=== PATIENT | male | born 1965 | race Caucasian/White ===

== ENCOUNTER 2020-08-18 10:07 | Observation (INO) | payer SELFPAY ==
[~2020-08-18] VITALS: Ht 175.3 cm; Wt 93.3 kg
[~2020-08-18 10:07] MED LIST: AMLO-187 PO; CITA20TA9 PO; CYCL10TA2 PO; ESCITALOPRAM OX10 MG PO; GABA600T PO; HYDR-2761 PO; LISI1TAB37 PO; OLME40TA12 PO; OMEP20CA5 PO; OXYC5TAB4 PO
[2020-08-18 11:27] LABS: BASO % 1 % (0-3); EOS # 0.1 x10^3/uL (0.0-0.7); EOS % 1 % (0-3); HEMATOCRIT 47.1 % (39.0-53.0); LYMPH # 0.9 x10^3/uL (1.0-4.8); LYMPH % 13 % (24-48); MEAN CORPUSCULAR HEMOGLOBIN 30 pg (25-35); MEAN CORPUSCULAR HGB CONC 34 g/dL (31-37); MEAN CORPUSCULAR VOLUME 88 fL (79-100); MONO # 0.6 x10^3/uL (0.0-1.1); MONO % 8 % (0-9); NEUT # 5.5 x10^3/uL (1.8-7.7); NEUT % 78 % (31-73); PLATELET COUNT 250 x10^3/uL (140-400); RED BLOOD COUNT 5.36 x10^6/uL (4.30-5.70); RED CELL DISTRIBUTION WIDTH 13.2 % (11.5-14.5)
[2020-08-18 11:40] LABS: CALCIUM 9.3 mg/dL (8.5-10.1); CREATININE 0.9 mg/dL (0.7-1.3); GFR 88.6; POTASSIUM 3.8 mmol/L (3.5-5.1)
[2020-08-18] MEDS ORDERED: MORPHINE SULFATE 10 MG/ML VIAL. IV ONE (11:45)
[2020-08-18 11:46] LABS: ALBUMIN 3.8 g/dL (3.4-5.0); TOTAL BILIRUBIN 1.2 mg/dL (0.2-1.0); TOTAL PROTEIN 7.6 g/dL (6.4-8.2)
--- NOTE | 2020-08-18 12:19 | RAD ---
EXAM: CT CHEST WITHOUT CONTRAST HISTORY: Back pain, pleuritic in nature, neuro symptoms. COMPARISON: None TECHNIQUE: Helical CT of the chest performed without contrast. Coronal and sagittal reformats were obtained. One or more of the following individualized dose reduction techniques were utilized for this examination: 1. Automated exposure control 2. Adjustment of the mA and/or kV according to patient size 3. Use of iterative reconstruction technique. FINDINGS: Thyroid gland and thoracic inlet: Visualized portion of the thyroid gland is normal. Heart and great vessels: The heart is normal in size. No pericardial effusion. Thoracic aorta is normal in caliber. There is no intramural hematoma. Minimal calcified atherosclerosis. Mediastinum and clay: No lymphadenopathy. There are few calcified hilar lymph nodes. Lungs and pleura: There are several calcified granulomas in the left upper lobe. No suspicious pulmonary nodule. The lungs are clear. No pleural effusion. Airways are normal. Chest wall and axillae: Normal. No axillary lymphadenopathy. Upper abdomen: The upper abdomen is normal. Bones: No acute osseous abnormality. IMPRESSION: No acute abnormality. Electronically signed by: Sugar Carter MD (08/18/2020 12:16 PM) [id number]
--- NOTE | 2020-08-18 18:14 | ED.ADGEN ---
Past Medical History Past Medical History: Anxiety, Hypertension Additional Past Medical Histor: back pain Past Surgical History: Other Additional Past Surgical Histo: neck fusion,stephon carpal tunnel, uvula removed, inguinal hernia,nose sx Smoking Status: Former Smoker Alcohol Use: Occasionally Drug Use: None General Adult EDM: Chief Complaint: BACK PAIN OR INJURY HPI: HPI: Patient is a 54 year old [f__sex] who presents with [] Review of Systems: Review of Systems: Constitutional: Denies fever or chills. [] Eyes: Denies change in visual acuity. [] HENT: Denies nasal congestion or sore throat. [] Respiratory: Denies cough or shortness of breath. [] Cardiovascular: Denies chest pain or edema. [] GI: Denies abdominal pain, nausea, vomiting, bloody stools or diarrhea. [] : Denies dysuria. [] Musculoskeletal: Denies back pain or joint pain. [] Integument: Denies rash. [] Neurologic: Denies headache, focal weakness or sensory changes. [] Endocrine: Denies polyuria or polydipsia. [] Lymphatic: Denies swollen glands. [] Psychiatric: Denies depression or anxiety. [] Current Medications: Current Medications Medications (Trade) Dose Ordered Sig/Anders Start Time Stop Time Status Last Admin Dose Admin Morphine Sulfate (Morphine Sulfate) 5 mg 1X ONCE 08/18/20 11:45 08/18/20 11:46 DC 08/18/20 12:08 5 MG Allergies: Allergies: Allergies Coded Allergies Type Severity Reaction Last Updated Verified Iodinated Contrast Media - IV Dye Allergy Severe 05/10/14 Yes Physical Exam: PE: Constitutional: Well developed, well nourished, no acute distress, non-toxic appearance. [] HENT: Normocephalic, atraumatic, bilateral external ears normal, oropharynx moist, no oral exudates, nose normal. [] Eyes: PERRLA, EOMI, conjunctiva normal, no discharge. [] Neck: Normal range of motion, no tenderness, supple, no stridor. [] Cardiovascular:Heart rate regular rhythm, no murmur [] Lungs & Thorax: Bilateral breath sounds clear to auscultation [] Abdomen: Bowel sounds normal, soft, no tenderness, no masses, no pulsatile masses. [] Skin: Warm, dry, no erythema, no rash. [] Back: No tenderness, no CVA tenderness. [] Extremities: No tenderness, no cyanosis, no clubbing, ROM intact, no edema. [] Neurologic: Alert and oriented X 3, normal motor function, normal sensory function, no focal deficits noted. [] Psychologic: Affect normal, judgement normal, mood normal. [] Current Patient Data: Labs: Laboratory Tests Test 08/18/20 11:14 White Blood Count 7.0 x10^3/uL (4.0-11.0) Red Blood Count 5.36 x10^6/uL (4.30-5.70) Hemoglobin 16.0 g/dL (13.0-17.5) Hematocrit 47.1 % (39.0-53.0) Mean Corpuscular Volume 88 fL (79-100) Mean Corpuscular Hemoglobin 30 pg (25-35) Mean Corpuscular Hemoglobin Concent 34 g/dL (31-37) Red Cell Distribution Width 13.2 % (11.5-14.5) Platelet Count 250 x10^3/uL (140-400) Neutrophils (%) (Auto) 78 % (31-73) H Lymphocytes (%) (Auto) 13 % (24-48) L Monocytes (%) (Auto) 8 % (0-9) Eosinophils (%) (Auto) 1 % (0-3) Basophils (%) (Auto) 1 % (0-3) Neutrophils # (Auto) 5.5 x10^3/uL (1.8-7.7) Lymphocytes # (Auto) 0.9 x10^3/uL (1.0-4.8) L Monocytes # (Auto) 0.6 x10^3/uL (0.0-1.1) Eosinophils # (Auto) 0.1 x10^3/uL (0.0-0.7) Basophils # (Auto) 0.0 x10^3/uL (0.0-0.2) D-Dimer (Janelle) < 0.27 ug/mlFEU Sodium Level 139 mmol/L (136-145) Potassium Level 3.8 mmol/L (3.5-5.1) Chloride Level 100 mmol/L (98-107) Carbon Dioxide Level 30 mmol/L (21-32) Anion Gap 9 (6-14) Blood Urea Nitrogen 17 mg/dL (8-26) Creatinine 0.9 mg/dL (0.7-1.3) Estimated GFR (Cockcroft-Gault) 88.6 BUN/Creatinine Ratio 19 (6-20) Glucose Level 99 mg/dL (70-99) Calcium Level 9.3 mg/dL (8.5-10.1) Total Bilirubin 1.2 mg/dL (0.2-1.0) H Aspartate Amino Transferase (AST) 18 U/L (15-37) Alanine Aminotransferase (ALT) 24 U/L (16-63) Alkaline Phosphatase 57 U/L (46-116) Troponin I Quantitative < 0.017 ng/mL (0.000-0.055) [id number]-Type Natriuretic Peptide 27 pg/mL (0-124) Total Protein 7.6 g/dL (6.4-8.2) Albumin 3.8 g/dL (3.4-5.0) Albumin/Globulin Ratio 1.0 (1.0-1.7) Laboratory Tests 08/18/20 11:14 Laboratory Tests 08/18/20 11:14 Vital Signs: Vital Signs Date Time Temp Pulse Resp B/P (MAP) Pulse Ox O2 Delivery O2 Flow Rate FiO2 08/18/20 14:55 92 132/80 (97) 99 Room Air 08/18/20 12:08 18 08/18/20 10:07 99.1 99.1 EKG: EKG: [] Heart Score: Risk Factors: Risk Factors: DM, Current or recent (<one month) smoker, HTN, HLP, family history of CAD, obesity. Risk Scores: Score 0 - 3: 2.5% MACE over next 6 weeks - Discharge Home Score 4 - 6: 20.3% MACE over next 6 weeks - Admit for Clinical Observation Score 7 - 10: 72.7% MACE over next 6 weeks - Early Invasive Strategies Radiology/Procedures: Radiology/Procedures: [] Course & Med Decision Making: Course & Med Decision Making Pertinent Labs and Imaging studies reviewed. (See chart for details) [] Kwadwo Disclaimer: Kwadwo Disclaimer: This electronic medical record was generated, in whole or in part, using a voice recognition dictation system. Departure Departure Impression: Primary Impression: Back pain Additional Impressions: Falls Weakness Disposition: 09 ADMITTED INPT THIS HOSP Condition: IMPROVED Referrals: NO PCP (PCP) Problem Qualifiers RICKY DERAS MD Aug 18, 2020 18:14
[2020-08-18] MEDS ORDERED: DOCUSATE SODIUM 100 MG CAPSULE. PO PRN (18:45)
[2020-08-18] MEDS ORDERED: POTASSIUM CHLORIDE 10MEQ 100 ML IV PRN (18:45)
[2020-08-18] MEDS ORDERED: POTASSIUM CHLORIDE 20 MEQ TABLET.ER. PO PRN (18:45)
[2020-08-18] MEDS ORDERED: ONDANSETRON PF 4 MG/2 ML VIAL. IVP PRN (18:45)
[2020-08-18] MEDS ORDERED: MAGNESIUM SULFATE 2GM 50 ML IV SCH (18:45)
[2020-08-18] MEDS ORDERED: ACETAMINOPHEN 325 MG TABLET. PO PRN ×2 (18:45)
[2020-08-18] MEDS ORDERED: POTASSIUM CHLORIDE 10MEQ 100 ML IV SCH (18:45)
[2020-08-18] MEDS ORDERED: DEXTROSE 50% 25 GM / 50ML DISP.SYRIN. IV PRN (18:45)
[2020-08-18] MEDS ORDERED: SENNOSIDES 8.6 MG TABLET PO PRN (18:45)
[2020-08-18 19:00] VITALS: BP 131/77
[2020-08-18] MEDS: CYCLOBENZAPRINE 10 MG TABLET. PO PRN (19:11)
[2020-08-18] MEDS: fentaNYL PF VIAL 100 MCG/2 ML VIAL IVP PRN (19:11)
[2020-08-18] MEDS ORDERED: ELECTROLYTE (NON-ICU) PROTOCOL. MC PRN (19:15)
--- NOTE | 2020-08-18 19:20 | PDOC1 ---
History and Physical Date of Service: DOS: DATE: 08/18/20 TIME: 18:46 Chief Complaint: Chief Complain: Back pain History of Present Illness: HPI: Patient is 54-year-old male with past medical history of hypertension and anxiety and worsening back pain for the last couple months. 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 Unfortunately, in the past few days his back pain is gotten so bad that he felt like it was stabbing him. Patient states when he was attempting to stand he can only stand for a few minutes and then he would need to hold onto something because he felt that his thoracic back was caving in on him. Patient denies any red flag symptoms such as bladder or bowel incontinence or lower extremity weakness numbness or tingling. He is unable to elevate his extremities over his head because of pain. When externally rotating his legs he complained of pain mainly in his lower back and in the hip area. Patient states that he did see a doctor in the clinic and said that he might have ankylosing spondylitis. Denies rashes, blurry vision, constipation, diarrhea, or syncope or falls. Patient does note that his mother has a history of rheumatoid arthritis Past Medical/Surgical History: PMH/PSH: Past Medical History: Anxiety, Hypertension, back pain Past Surgical History: cervical neck fusion,stephon carpal tunnel, uvula removed, inguinal hernia,nose sx Allergies: Allergies: Coded Allergies: Iodinated Contrast Media - IV Dye (Verified Allergy, Severe, 05/10/14) Family History: Family History: Mom with a history of rheumatoid arthritis Social History: Social History: Smoking Status: Former Smoker Alcohol Use: Occasionally Drug Use: None Current Medications: Current Medications Current Medications Morphine Sulfate (Morphine Sulfate) 5 mg 1X ONCE IV Last administered on 08/18/20at 12:08; Start 08/18/20 at 11:45; Stop 08/18/20 at 11:46; Status DC Active Scripts Active Reported Hydrocodone-Apap 5-325 (Hydrocodone Bit/Acetaminophen) 1 Each Tablet 1 Tab PO DAILY PRN Cyclobenzaprine Hcl 10 Mg Tablet 10 Mg PO DAILY Escitalopram Oxalate 10 Mg Tablet 10 Mg PO DAILY Amlodipine Besylate 10 Mg Tablet 10 Mg PO DAILY Benicar (Olmesartan Medoxomil) 40 Mg Tablet 40 Mg PO DAILY ROS: Review of Systems Review of System REVIEW OF SYSTEMS: GENERAL: Denies weakness SKIN: No bruising, hair changes or rashes. EYES: No blurred, double or loss of vision. NOSE AND THROAT: No history of nosebleeds, hoarseness or sore throat. HEART: No history of palpitations, chest pain or shortness of breath on exertion. LUNGS: Denies cough, hemoptysis, wheezing or shortness of breath. GASTROINTESTINAL: Denies changes in appetite, nausea, vomiting, diarrhea or constipation. GENITOURINARY: No history of frequency, urgency, hesitancy or nocturia. NEUROLOGIC: Denies history of numbness, tingling, or tremor. PSYCHIATRIC: No history of panic, anxiety or depression. ENDOCRINE: No history of heat or cold intolerance, polyuria or polydipsia. EXTREMITIES: Denies joint pain, pain on walking or stiffness. Physical Exam: Vital Signs: Vital Signs Date Time Temp Pulse Resp B/P (MAP) Pulse Ox O2 Delivery O2 Flow Rate FiO2 08/18/20 17:25 81 135/78 (97) 97 Room Air 08/18/20 12:08 18 08/18/20 10:07 99.1 99.1 Physcial Exam: GEN: No apparent distress. Alert and oriented HEENT: Normal cephalic, atraumatic, external auditory canals are patent EYES: Extraocular muscles are intact, pupil are equally round and reactive to light and accommodation MUSCULOSKELETAL: Well developed , well nourished, limited range of motion due to pain. 5 out of 5 strength in all extremities. Tenderness along the para spinal border in the thoracic region around T5 ENDOCRINE: No thyromegaly was palpated LYMPHATICS: No cervical chain or axillary nodes were noted HEMATOPOIETIC: No bruising NECK: Supple, no JVD, no thyromegaly was noted LUNGS: Clear to auscultation in all lung west without rhonchi or wheezing HEART: RRR, S!, S2 present. Peripheral pulses intact, no obvious murmurs noted ABDOMEN: Soft, nontender. Positive bowel sounds, no organomegaly, normal bowel sounds EXTREMITIES: Without clubbing, cyanosis, or edema. Pedal pulses intact. Negative Homans sign NEUROLOGIC: Normal speech and tone. A&O x 3, moves all extremities, no obvious focal deficits PSYCHIATRIC: Normal affect, normal mood. Stable SKIN: No ulcerations or rashes, good skin turgor, no jaundice VASCULAR: Good capillary refill, neurovascular bundle appears to be intact Labs: Labs: Laboratory Tests Test 08/18/20 11:14 White Blood Count 7.0 x10^3/uL (4.0-11.0) Red Blood Count 5.36 x10^6/uL (4.30-5.70) Hemoglobin 16.0 g/dL (13.0-17.5) Hematocrit 47.1 % (39.0-53.0) Mean Corpuscular Volume 88 fL (79-100) Mean Corpuscular Hemoglobin 30 pg (25-35) Mean Corpuscular Hemoglobin Concent 34 g/dL (31-37) Red Cell Distribution Width 13.2 % (11.5-14.5) Platelet Count 250 x10^3/uL (140-400) Neutrophils (%) (Auto) 78 % (31-73) Lymphocytes (%) (Auto) 13 % (24-48) Monocytes (%) (Auto) 8 % (0-9) Eosinophils (%) (Auto) 1 % (0-3) Basophils (%) (Auto) 1 % (0-3) Neutrophils # (Auto) 5.5 x10^3/uL (1.8-7.7) Lymphocytes # (Auto) 0.9 x10^3/uL (1.0-4.8) Monocytes # (Auto) 0.6 x10^3/uL (0.0-1.1) Eosinophils # (Auto) 0.1 x10^3/uL (0.0-0.7) Basophils # (Auto) 0.0 x10^3/uL (0.0-0.2) D-Dimer (Janelle) < 0.27 ug/mlFEU Sodium Level 139 mmol/L (136-145) Potassium Level 3.8 mmol/L (3.5-5.1) Chloride Level 100 mmol/L (98-107) Carbon Dioxide Level 30 mmol/L (21-32) Anion Gap 9 (6-14) Blood Urea Nitrogen 17 mg/dL (8-26) Creatinine 0.9 mg/dL (0.7-1.3) Estimated GFR (Cockcroft-Gault) 88.6 BUN/Creatinine Ratio 19 (6-20) Glucose Level 99 mg/dL (70-99) Calcium Level 9.3 mg/dL (8.5-10.1) Total Bilirubin 1.2 mg/dL (0.2-1.0) Aspartate Amino Transf (AST/SGOT) 18 U/L (15-37) Alanine Aminotransferase (ALT/SGPT) 24 U/L (16-63) Alkaline Phosphatase 57 U/L (46-116) Troponin I Quantitative < 0.017 ng/mL (0.000-0.055) MV-[id number]-Type Natriuretic Peptide 27 pg/mL (0-124) Total Protein 7.6 g/dL (6.4-8.2) Albumin 3.8 g/dL (3.4-5.0) Albumin/Globulin Ratio 1.0 (1.0-1.7) Laboratory Tests Test 08/18/20 11:14 White Blood Count 7.0 x10^3/uL (4.0-11.0) Red Blood Count 5.36 x10^6/uL (4.30-5.70) Hemoglobin 16.0 g/dL (13.0-17.5) Hematocrit 47.1 % (39.0-53.0) Mean Corpuscular Volume 88 fL (79-100) Mean Corpuscular Hemoglobin 30 pg (25-35) Mean Corpuscular Hemoglobin Concent 34 g/dL (31-37) Red Cell Distribution Width 13.2 % (11.5-14.5) Platelet Count 250 x10^3/uL (140-400) Neutrophils (%) (Auto) 78 % (31-73) Lymphocytes (%) (Auto) 13 % (24-48) Monocytes (%) (Auto) 8 % (0-9) Eosinophils (%) (Auto) 1 % (0-3) Basophils (%) (Auto) 1 % (0-3) Neutrophils # (Auto) 5.5 x10^3/uL (1.8-7.7) Lymphocytes # (Auto) 0.9 x10^3/uL (1.0-4.8) Monocytes # (Auto) 0.6 x10^3/uL (0.0-1.1) Eosinophils # (Auto) 0.1 x10^3/uL (0.0-0.7) Basophils # (Auto) 0.0 x10^3/uL (0.0-0.2) D-Dimer (Janelle) < 0.27 ug/mlFEU Sodium Level 139 mmol/L (136-145) Potassium Level 3.8 mmol/L (3.5-5.1) Chloride Level 100 mmol/L (98-107) Carbon Dioxide Level 30 mmol/L (21-32) Anion Gap 9 (6-14) Blood Urea Nitrogen 17 mg/dL (8-26) Creatinine 0.9 mg/dL (0.7-1.3) Estimated GFR (Cockcroft-Gault) 88.6 BUN/Creatinine Ratio 19 (6-20) Glucose Level 99 mg/dL (70-99) Calcium Level 9.3 mg/dL (8.5-10.1) Total Bilirubin 1.2 mg/dL (0.2-1.0) Aspartate Amino Transf (AST/SGOT) 18 U/L (15-37) Alanine Aminotransferase (ALT/SGPT) 24 U/L (16-63) Alkaline Phosphatase 57 U/L (46-116) Troponin I Quantitative < 0.017 ng/mL (0.000-0.055) [id number]-Type Natriuretic Peptide 27 pg/mL (0-124) Total Protein 7.6 g/dL (6.4-8.2) Albumin 3.8 g/dL (3.4-5.0) Albumin/Globulin Ratio 1.0 (1.0-1.7) Images: Images CT CHEST FINDINGS: Thyroid gland and thoracic inlet: Visualized portion of the thyroid gland is normal. Heart and great vessels: The heart is normal in size. No pericardial effusion. Thoracic aorta is normal in caliber. There is no intramural hematoma. Minimal calcified atherosclerosis. Mediastinum and clay: No lymphadenopathy. There are few calcified hilar lymph nodes. Lungs and pleura: There are several calcified granulomas in the left upper lobe. No suspicious pulmonary nodule. The lungs are clear. No pleural effusion. Airways are normal. Chest wall and axillae: Normal. No axillary lymphadenopathy. Upper abdomen: The upper abdomen is normal. Bones: No acute osseous abnormality. IMPRESSION: No acute abnormality. Assessment/Plan Assessment/Plan Intractable back pain Hypertension Anxiety History of cervical fusion Admit to medicine for further management IV and p.o. pain control Rehab consult with Dr. Barrios for possible joint steroid injections Consider neurology consult if there worsening weakness of his upper or lower extremities Pending ESR for suspicion for ankylosing spondylitis AP pelvic x-ray PT OT Lovenox for DVT prophylaxis Regular diet Full code Discussed with RN and SW Disposition inpatient care as above Surrogate decision maker is Kayla Farrell Justifications for Admission Other Justification TATYANA CASTRO MD Aug 18, 2020 19:20
[2020-08-18] MEDS ORDERED: MAGNESIUM OXIDE 400 MG TABLET PO SCH (21:00)
[2020-08-18] MEDS: ENOXAPARIN 40 MG/0.4 ML SYRINGE. SQ SCH (22:24)
[2020-08-18 23:00] VITALS: BP 115/74
--- NOTE | 2020-08-18 23:00 | NUR ---
ADMIT NOTE The patient, MARQUEZ AVENDANO, 54 y/o, M admitted by TATYANA CASTRO MD, was given written information regarding hospital policies, unit procedures and contact persons. Patient orientated to room, admit packet reviewed and plan of care discussed. Patient's allergies verified and patient reports taking no regular home medications. Patient remains in bed, call light within reach and bed in lowest/locked position; no other needs voiced at this time.
--- NOTE | 2020-08-19 00:04 | RAD ---
Pelvis one view. HISTORY: Evaluate for ankylosing spondylitis Single view was taken of the pelvis. Hips appear unremarkable. SI joints appear normal without fusion or sclerosis. There is degenerative disc disease and facet arthritis in the lower lumbar spine. IMPRESSION: 1. Negative pelvis. Electronically signed by: Moises Grijalva MD (08/19/2020 12:02 AM) [id number]
[2020-08-19 03:00] VITALS: BP 114/74
[2020-08-19 05:17] LABS: BASO # 0.1 x10^3/uL (0.0-0.2); BASO % 1 % (0-3); EOS # 0.2 x10^3/uL (0.0-0.7); EOS % 3 % (0-3); HEMATOCRIT 48.2 % (39.0-53.0); HEMOGLOBIN 15.9 g/dL (13.0-17.5); LYMPH # 1.7 x10^3/uL (1.0-4.8); LYMPH % 21 % (24-48); MEAN CORPUSCULAR HEMOGLOBIN 29 pg (25-35); MEAN CORPUSCULAR HGB CONC 33 g/dL (31-37); MEAN CORPUSCULAR VOLUME 89 fL (79-100); MONO # 0.8 x10^3/uL (0.0-1.1); MONO % 10 % (0-9); NEUT # 5.3 x10^3/uL (1.8-7.7); NEUT % 66 % (31-73); PLATELET COUNT 252 x10^3/uL (140-400); RED CELL DISTRIBUTION WIDTH 13.7 % (11.5-14.5); WHITE BLOOD COUNT 8.1 x10^3/uL (4.0-11.0)
[2020-08-19 05:27] LABS: CALCIUM 8.7 mg/dL (8.5-10.1); CREATININE 0.8 mg/dL (0.7-1.3); GFR 101.5; MAGNESIUM 2.1 mg/dL (1.8-2.4); PHOSPHORUS 3.8 mg/dL (2.6-4.7); POTASSIUM 3.7 mmol/L (3.5-5.1)
[2020-08-19] MEDS: CYCLOBENZAPRINE 10 MG TABLET. PO PRN ×2 (05:58→18:02)
[2020-08-19] MEDS: fentaNYL PF VIAL 100 MCG/2 ML VIAL IVP PRN (05:59)
[2020-08-19 07:00] VITALS: BP 134/82
--- NOTE | 2020-08-19 08:41 | PDOC ---
PROGRESS NOTES Date of Service: DATE: 08/19/20 TIME: 08:41 Chief Complaint Chief Complaint Assessment/Plan Assessment/Plan Intractable back pain Hypertension Anxiety History of cervical fusion GAIT INSTABILITY WITH FALLS, FREQUENT moderate sized posterior disc protrusion centered to the left of midline at C6- 7, extending into the inferior aspect of the left neural foramen with associated effacement of the left nerve root sleeve IN 2016 Previous anterior spinal fusion and instrumentation from C3 through C5.Moderate posterior disc protrusion on the left at C6-7 with considerable left foraminal encroachment and mild central spinal stenosis, MYELOGRAM PLAN Admit to medicine for further management IV and p.o. pain control Rehab consult with Dr. WORRELL for possible joint steroid injections Consider neurology consult if there worsening weakness of his upper or lower ex tremities ESR for suspicion for ankylosing spondylitis AP pelvic x-ray PT OT Lovenox for DVT prophylaxis Regular diet Full code Discussed with RN and SW Disposition inpatient care as above Surrogate decision maker is Kayla Farrell psa ESR X RAY L/S CONSULT NEUROSURGERY x ray c/s 37 MIN pt exam, chart review, > 50% of time spent with exam, chart review, pt care coordination Justifications for Admission Justifications for Admission Other Justification History of Present Illness History of Present Illness Chief Complaint: Chief Complain: Back pain History of Present Illness: HPI: Patient is 54-year-old male with past medical history of hypertension and anxiety and worsening back pain for the last couple months. 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 Unfortunately, in the past few days his back pain is gotten so bad that he felt like it was stabbing him. Patient states when he was attempting to stand he can only stand for a few minutes and then he would need to hold onto something because he felt that his thoracic back was caving in on him. Patient denies any red flag symptoms such as bladder or bowel incontinence or lower extremity weakness numbness or tingling. He is unable to elevate his extremities over his head because of pain. When externally rotating his legs he complained of pain mainly in his lower back and in the hip area. Patient states that he did see a doctor in the clinic and said that he might have ankylosing spondylitis. Denies rashes, blurry vision, constipation, diarrhea, or syncope or falls. Patient does note that his mother has a history of rheumatoid arthritis Past Medical/Surgical History: PMH/PSH: Past Medical History: Anxiety, Hypertension, back pain Past Surgical History: cervical neck fusion,stephon carpal tunnel, uvula removed, inguinal hernia,nose sx Allergies: Allergies: Coded Allergies: Iodinated Contrast Media - IV Dye (Verified Allergy, Severe, 05/10/14) Family History: Family History: Mom with a history of rheumatoid arthritis Social History: Social History: Smoking Status: Former Smoker Alcohol Use: Occasionally Drug Use: None Vitals Vitals Vital Signs Date Time Temp Pulse Resp B/P (MAP) Pulse Ox O2 Delivery O2 Flow Rate FiO2 08/19/20 06:30 16 Room Air 08/19/20 03:00 97.8 78 114/74 (87) 96 97.8 Physical Exam Physical Exam Physcial Exam: GEN: No apparent distress. Alert and oriented HEENT: Normal cephalic, atraumatic, external auditory canals are patent EYES: Extraocular muscles are intact, pupil are equally round and reactive to light and accommodation MUSCULOSKELETAL: Well developed , well nourished, limited range of motion due to pain. 5 out of 5 strength in all extremities. Tenderness along the parasp inal border in the thoracic region around T5 ENDOCRINE: No thyromegaly was palpated LYMPHATICS: No cervical chain or axillary nodes were noted HEMATOPOIETIC: No bruising NECK: Supple, no JVD, no thyromegaly was noted LUNGS: Clear to auscultation in all lung west without rhonchi or wheezing HEART: RRR, S!, S2 present. Peripheral pulses intact, no obvious murmurs noted ABDOMEN: Soft, nontender. Positive bowel sounds, no organomegaly, normal bowel sounds EXTREMITIES: Without clubbing, cyanosis, or edema. Pedal pulses intact. Negative Homans sign NEUROLOGIC: Normal speech and tone. A&O x 3, moves all extremities, no obvious focal deficits PSYCHIATRIC: Normal affect, normal mood. Stable SKIN: No ulcerations or rashes, good skin turgor, no jaundice VASCULAR: Good capillary refill, neurovascular bundle appears to be intact General: Alert, Oriented X3, Cooperative, No acute distress, mild distress Heart: Regular rate Lungs: Clear Abdomen: Normal bowel sounds, Soft, No tenderness Extremities: No clubbing, No cyanosis, No tenderness/swelling Labs LABS PROCEDURE: MRI brain with contrast. HISTORY: Headaches, dizziness, generalized weakness. Syncope. TECHNIQUE: Sagittal T1, axial T1, axial T2, axial FLAIR, diffusion imaging with ADC map, axial T2 gradient, sagittal FLAIR, post-contrast axial, and post-contrast coronal sequences are provided. The patient received 8 milliliters of intravenous Gadavist without complication. No comparison is available. FINDINGS: The ventricles are normal in size and configuration. There is no intracranial hemorrhage or extra-axial fluid collection. There is no mass effect or midline shift. There is no area of restricted diffusion to suggest an acute infarct. The intracranial flow voids are preserved. The sagittal midline structures are unremarkable. The pituitary and suprasellar region are unremarkable. There is no area of unexpected enhancement on post-contrast imaging. There is a retention cyst in the right maxillary sinus. There is fluid in the optic sheaths. IMPRESSION: No acute intracranial findings. Electronically signed by: Dustin Swenson MD (Apr 15, 2014 11:48:11) DICTATED and SIGNED BY: DUSTIN SWENSON MD DATE: 04/15/14 1148 EXAM: CT CHEST WITHOUT CONTRAST HISTORY: Back pain, pleuritic in nature, neuro symptoms. COMPARISON: None TECHNIQUE: Helical CT of the chest performed without contrast. Coronal and sagittal reformats were obtained. One or more of the following individualized dose reduction techniques were utilized for this examination: 1. Automated exposure control 2. Adjustment of the mA and/or kV according to patient size 3. Use of iterative reconstruction technique. FINDINGS: Thyroid gland and thoracic inlet: Visualized portion of the thyroid gland is normal. Heart and great vessels: The heart is normal in size. No pericardial effusion. Thoracic aorta is normal in caliber. There is no intramural hematoma. Minimal calcified atherosclerosis. Mediastinum and clay: No lymphadenopathy. There are few calcified hilar lymph nodes. Lungs and pleura: There are several calcified granulomas in the left upper lobe. No suspicious pulmonary nodule. The lungs are clear. No pleural effusion. Airways are normal. Chest wall and axillae: Normal. No axillary lymphadenopathy. Upper abdomen: The upper abdomen is normal. Bones: No acute osseous abnormality. IMPRESSION: No acute abnormality. Electronically signed by: Sugar Carter MD (08/18/2020 12:16 PM) [id number] DICTATED and SIGNED BY: SUGAR CARTER MD PROCEDURE: MRI thoracic spine without contrast. HISTORY: Back pain and anterior chest pain. Vibratory sensations in chest. Tremors. Weakness. TECHNIQUE: Sagittal T1, sagittal T2, sagittal STIR and axial T2 sequences are provided. COMPARISON: No comparison is available. FINDINGS: There is no malalignment. There is no marrow edema. There is no worrisome marrow lesion. There is no cord signal abnormality. At T4-T5, there are small bilateral subarticular protrusions. There is no canal stenosis. There is slight effacement of the ventral CSF column. There is no cord flattening. At T5-T6, there is a left subarticular/foraminal protrusion measuring 9 x 6 millimeters. There is left lateral recess narrowing. There is mild left foraminal narrowing. At T7-T8, there is a minimal disc bulge without canal or foraminal compromise. At T10-T11 there is minimal facet hypertrophy without canal or foraminal compromise. IMPRESSION: Small protrusions at T5-T6 and T4-T5. Minimal disc bulge at T7-T8. There is no high-grade canal stenosis at any level. There is lateral recess narrowing and foraminal narrowing on the left at T5-T6. Electronically signed by: Dustin Swenson MD (Apr 16, 2014 07:54:18) DICTATED and SIGNED BY: DUSTIN SWENSON MD DATE: 04/16/14 0754 CC: RADHA BLACKMON MD; BRANNON ALEXIS MD; JOSE GARCIA Cervical myelogram, 04/27/2016: History: Neck pain, disc protrusion Under local anesthesia, aseptic conditions and fluoroscopic guidance a lumbar puncture was performed at the L2-3 level utilizing a 25-gauge Maryjo spinal needle. Good clear CSF flow was obtained following which 10 cc of Omnipaque 300 was injected into the thecal sac. The spinal needle was then removed and hemostasis obtained. Appropriate cervical digital imaging was then performed. The patient tolerated the procedure well and was sent to CT in good condition. 2.6 minutes of fluoroscopy time was utilized. 12 fluoroscopic spot images were recorded. The following findings were delineated on the myelogram: 1. Preliminary cervical images demonstrate changes of an anterior spinal fusion from C3 through C5 with a fixation plate and multiple screws in place. There are radiopaque disc spacers at the C3-4 and C4-5 levels with solid intervening bony fusion. 2. With the patient's neck extended there was partial obstruction to superior flow of the contrast material at the C6-7 level. In the neutral position there is a moderate left anterolateral extradural defect at C6-7 at the level of the exiting nerve root sleeve. There is also a mild posterior extradural defect at that level. 3. No other significant intradural or extradural abnormality is detected. The other cervical nerve root sleeves are fairly well opacified. CT of the cervical spine-post myelogram, 04/27/2016: Multidetector CT imaging was performed with multiplanar reconstructions produced. The following findings are delineated: 1. Changes of a previous anterior spinal fusion with instrumentation are again noted from C3 through C5. No fracture or destructive bony lesion is seen. There are mild to moderate degenerative changes involving scattered facet joints throughout the cervical spine. 2. At C2-3 there is no significant posterior disc bulge or protrusion. The central spinal canal and neural foramina are well maintained. 3. There is only minimal midline posterior spurring at the fused C3-4 and C4-5 disc levels. The thecal sac measures 9-10 mm in AP dimension at both of these levels. The neural foramina are widely patent at both of these levels. 4. At C5-6 there is minimal posterior marginal spurring. No significant disc bulge or protrusion is seen. The thecal sac measures 10 mm in AP diameter at the midline. The neural foramina are well preserved. 5. At and inferior to the C6-7 level there are artifacts arising from the patient's shoulders which degrade image quality. There is a moderate sized posterior disc protrusion centered to the left of midline at C6-7, extending into the inferior aspect of the left neural foramen with associated effacement of the left nerve root sleeve. The thecal sac measures 8-9 mm in AP diameter at the midline. 6. At C7-T1 the central spinal canal and neural foramina are well preserved. IMPRESSION: 1. Previous anterior spinal fusion and instrumentation from C3 through C5. 2. Moderate posterior disc protrusion on the left at C6-7 with considerable left foraminal encroachment and mild central spinal stenosis. 3. Mild to moderate scattered degenerative changes involving the facet joints bilaterally. DICTATED and SIGNED BY: GARRETT BOWERS MD DATE: 04/27/16 1229 CC: JOSE GARCIA Laboratory Tests Test 08/18/20 11:14 08/19/20 04:05 White Blood Count 7.0 x10^3/uL (4.0-11.0) 8.1 x10^3/uL (4.0-11.0) Red Blood Count 5.36 x10^6/uL (4.30-5.70) 5.40 x10^6/uL (4.30-5.70) Hemoglobin 16.0 g/dL (13.0-17.5) 15.9 g/dL (13.0-17.5) Hematocrit 47.1 % (39.0-53.0) 48.2 % (39.0-53.0) Mean Corpuscular Volume 88 fL (79-100) 89 fL (79-100) Mean Corpuscular Hemoglobin 30 pg (25-35) 29 pg (25-35) Mean Corpuscular Hemoglobin Concent 34 g/dL (31-37) 33 g/dL (31-37) Red Cell Distribution Width 13.2 % (11.5-14.5) 13.7 % (11.5-14.5) Platelet Count 250 x10^3/uL (140-400) 252 x10^3/uL (140-400) Neutrophils (%) (Auto) 78 % (31-73) 66 % (31-73) Lymphocytes (%) (Auto) 13 % (24-48) 21 % (24-48) Monocytes (%) (Auto) 8 % (0-9) 10 % (0-9) Eosinophils (%) (Auto) 1 % (0-3) 3 % (0-3) Basophils (%) (Auto) 1 % (0-3) 1 % (0-3) Neutrophils # (Auto) 5.5 x10^3/uL (1.8-7.7) 5.3 x10^3/uL (1.8-7.7) Lymphocytes # (Auto) 0.9 x10^3/uL (1.0-4.8) 1.7 x10^3/uL (1.0-4.8) Monocytes # (Auto) 0.6 x10^3/uL (0.0-1.1) 0.8 x10^3/uL (0.0-1.1) Eosinophils # (Auto) 0.1 x10^3/uL (0.0-0.7) 0.2 x10^3/uL (0.0-0.7) Basophils # (Auto) 0.0 x10^3/uL (0.0-0.2) 0.1 x10^3/uL (0.0-0.2) D-Dimer (Janelle) < 0.27 ug/mlFEU Sodium Level 139 mmol/L (136-145) 139 mmol/L (136-145) Potassium Level 3.8 mmol/L (3.5-5.1) 3.7 mmol/L (3.5-5.1) Chloride Level 100 mmol/L (98-107) 103 mmol/L (98-107) Carbon Dioxide Level 30 mmol/L (21-32) 28 mmol/L (21-32) Anion Gap 9 (6-14) 8 (6-14) Blood Urea Nitrogen 17 mg/dL (8-26) 15 mg/dL (8-26) Creatinine 0.9 mg/dL (0.7-1.3) 0.8 mg/dL (0.7-1.3) Estimated GFR (Cockcroft-Gault) 88.6 101.5 BUN/Creatinine Ratio 19 (6-20) Glucose Level 99 mg/dL (70-99) 89 mg/dL (70-99) Calcium Level 9.3 mg/dL (8.5-10.1) 8.7 mg/dL (8.5-10.1) Total Bilirubin 1.2 mg/dL (0.2-1.0) Aspartate Amino Transf (AST/SGOT) 18 U/L (15-37) Alanine Aminotransferase (ALT/SGPT) 24 U/L (16-63) Alkaline Phosphatase 57 U/L (46-116) Troponin I Quantitative < 0.017 ng/mL (0.000-0.055) C-Reactive Protein, Quantitative 1.7 mg/L (0-3.3) FI-Dks-Y-Type Natriuretic Peptide 27 pg/mL (0-124) Total Protein 7.6 g/dL (6.4-8.2) Albumin 3.8 g/dL (3.4-5.0) Albumin/Globulin Ratio 1.0 (1.0-1.7) Phosphorus Level 3.8 mg/dL (2.6-4.7) Magnesium Level 2.1 mg/dL (1.8-2.4) Assessment and Plan Assessmemt and Plan Problems Medical Problems: (1) Back pain Status: Acute (2) Falls Status: Acute (3) Weakness Status: Acute * One-on-One Instruction Factors Facilitating Goal Achievement * Motivation level * Prior level of function * Response to training Problem List (body system elements) * Impaired fnctnl mobility * Strength * Balance * Knowledge-safe techniques Clinical Presentation * Stable Evaluation Complexity Level * Low Complexity Pt/caregiver agrees with plan of care/goals * Yes Patient condition at conclusion of therapy * Pt in chair * Call light in reach * Phone in reach * PtIn no apparent distress * Pt denies further needs Communicated Patient Care With (Name, Title) * Feliz RN; TOMMY Mukherjee Goal 1 - Bed Mobility Assistance Required * Independent Goal 2 - Transfers Assistance Required * Independent Goal 2 - Transfer Type * Sit to Stand Goal 3 - Ambulation Assistance Required * Independent Goal 3 - Ambulation Distance * 100' Goal 3 - Ambulation Device * Roller Walker Goal 4 - Stairs Assistance Required * Independent Goal 4 - Number of Stairs * 1 Treatment Plan * Therapeutic Exercise * Bed Mobility Training * Transfer training * Gait Training * Dynamic Balance Training Frequency of Treatment Expected * 7 visits/week Duration of Treatment Expected * 1 week Discharge Recommendations * Home with outpatient Discharge Recommendation - DME * Rolling Walker needed * in order to complete ADLs * and ambulation safely Comment Review of Relevant I have reviewed the following items oliva (where applicable) has been applied. Labs Laboratory Tests Test 08/18/20 11:14 08/19/20 04:05 White Blood Count 7.0 x10^3/uL (4.0-11.0) 8.1 x10^3/uL (4.0-11.0) Red Blood Count 5.36 x10^6/uL (4.30-5.70) 5.40 x10^6/uL (4.30-5.70) Hemoglobin 16.0 g/dL (13.0-17.5) 15.9 g/dL (13.0-17.5) Hematocrit 47.1 % (39.0-53.0) 48.2 % (39.0-53.0) Mean Corpuscular Volume 88 fL (79-100) 89 fL (79-100) Mean Corpuscular Hemoglobin 30 pg (25-35) 29 pg (25-35) Mean Corpuscular Hemoglobin Concent 34 g/dL (31-37) 33 g/dL (31-37) Red Cell Distribution Width 13.2 % (11.5-14.5) 13.7 % (11.5-14.5) Platelet Count 250 x10^3/uL (140-400) 252 x10^3/uL (140-400) Neutrophils (%) (Auto) 78 % (31-73) 66 % (31-73) Lymphocytes (%) (Auto) 13 % (24-48) 21 % (24-48) Monocytes (%) (Auto) 8 % (0-9) 10 % (0-9) Eosinophils (%) (Auto) 1 % (0-3) 3 % (0-3) Basophils (%) (Auto) 1 % (0-3) 1 % (0-3) Neutrophils # (Auto) 5.5 x10^3/uL (1.8-7.7) 5.3 x10^3/uL (1.8-7.7) Lymphocytes # (Auto) 0.9 x10^3/uL (1.0-4.8) 1.7 x10^3/uL (1.0-4.8) Monocytes # (Auto) 0.6 x10^3/uL (0.0-1.1) 0.8 x10^3/uL (0.0-1.1) Eosinophils # (Auto) 0.1 x10^3/uL (0.0-0.7) 0.2 x10^3/uL (0.0-0.7) Basophils # (Auto) 0.0 x10^3/uL (0.0-0.2) 0.1 x10^3/uL (0.0-0.2) D-Dimer (Janelle) < 0.27 ug/mlFEU Sodium Level 139 mmol/L (136-145) 139 mmol/L (136-145) Potassium Level 3.8 mmol/L (3.5-5.1) 3.7 mmol/L (3.5-5.1) Chloride Level 100 mmol/L (98-107) 103 mmol/L (98-107) Carbon Dioxide Level 30 mmol/L (21-32) 28 mmol/L (21-32) Anion Gap 9 (6-14) 8 (6-14) Blood Urea Nitrogen 17 mg/dL (8-26) 15 mg/dL (8-26) Creatinine 0.9 mg/dL (0.7-1.3) 0.8 mg/dL (0.7-1.3) Estimated GFR (Cockcroft-Gault) 88.6 101.5 BUN/Creatinine Ratio 19 (6-20) Glucose Level 99 mg/dL (70-99) 89 mg/dL (70-99) Calcium Level 9.3 mg/dL (8.5-10.1) 8.7 mg/dL (8.5-10.1) Total Bilirubin 1.2 mg/dL (0.2-1.0) Aspartate Amino Transf (AST/SGOT) 18 U/L (15-37) Alanine Aminotransferase (ALT/SGPT) 24 U/L (16-63) Alkaline Phosphatase 57 U/L (46-116) Troponin I Quantitative < 0.017 ng/mL (0.000-0.055) C-Reactive Protein, Quantitative 1.7 mg/L (0-3.3) ZK-Cqb-Q-Type Natriuretic Peptide 27 pg/mL (0-124) Total Protein 7.6 g/dL (6.4-8.2) Albumin 3.8 g/dL (3.4-5.0) Albumin/Globulin Ratio 1.0 (1.0-1.7) Phosphorus Level 3.8 mg/dL (2.6-4.7) Magnesium Level 2.1 mg/dL (1.8-2.4) Laboratory Tests Test 08/18/20 11:14 08/19/20 04:05 White Blood Count 7.0 x10^3/uL (4.0-11.0) 8.1 x10^3/uL (4.0-11.0) Red Blood Count 5.36 x10^6/uL (4.30-5.70) 5.40 x10^6/uL (4.30-5.70) Hemoglobin 16.0 g/dL (13.0-17.5) 15.9 g/dL (13.0-17.5) Hematocrit 47.1 % (39.0-53.0) 48.2 % (39.0-53.0) Mean Corpuscular Volume 88 fL (79-100) 89 fL (79-100) Mean Corpuscular Hemoglobin 30 pg (25-35) 29 pg (25-35) Mean Corpuscular Hemoglobin Concent 34 g/dL (31-37) 33 g/dL (31-37) Red Cell Distribution Width 13.2 % (11.5-14.5) 13.7 % (11.5-14.5) Platelet Count 250 x10^3/uL (140-400) 252 x10^3/uL (140-400) Neutrophils (%) (Auto) 78 % (31-73) 66 % (31-73) Lymphocytes (%) (Auto) 13 % (24-48) 21 % (24-48) Monocytes (%) (Auto) 8 % (0-9) 10 % (0-9) Eosinophils (%) (Auto) 1 % (0-3) 3 % (0-3) Basophils (%) (Auto) 1 % (0-3) 1 % (0-3) Neutrophils # (Auto) 5.5 x10^3/uL (1.8-7.7) 5.3 x10^3/uL (1.8-7.7) Lymphocytes # (Auto) 0.9 x10^3/uL (1.0-4.8) 1.7 x10^3/uL (1.0-4.8) Monocytes # (Auto) 0.6 x10^3/uL (0.0-1.1) 0.8 x10^3/uL (0.0-1.1) Eosinophils # (Auto) 0.1 x10^3/uL (0.0-0.7) 0.2 x10^3/uL (0.0-0.7) Basophils # (Auto) 0.0 x10^3/uL (0.0-0.2) 0.1 x10^3/uL (0.0-0.2) D-Dimer (Janelle) < 0.27 ug/mlFEU Sodium Level 139 mmol/L (136-145) 139 mmol/L (136-145) Potassium Level 3.8 mmol/L (3.5-5.1) 3.7 mmol/L (3.5-5.1) Chloride Level 100 mmol/L (98-107) 103 mmol/L (98-107) Carbon Dioxide Level 30 mmol/L (21-32) 28 mmol/L (21-32) Anion Gap 9 (6-14) 8 (6-14) Blood Urea Nitrogen 17 mg/dL (8-26) 15 mg/dL (8-26) Creatinine 0.9 mg/dL (0.7-1.3) 0.8 mg/dL (0.7-1.3) Estimated GFR (Cockcroft-Gault) 88.6 101.5 BUN/Creatinine Ratio 19 (6-20) Glucose Level 99 mg/dL (70-99) 89 mg/dL (70-99) Calcium Level 9.3 mg/dL (8.5-10.1) 8.7 mg/dL (8.5-10.1) Total Bilirubin 1.2 mg/dL (0.2-1.0) Aspartate Amino Transf (AST/SGOT) 18 U/L (15-37) Alanine Aminotransferase (ALT/SGPT) 24 U/L (16-63) Alkaline Phosphatase 57 U/L (46-116) Troponin I Quantitative < 0.017 ng/mL (0.000-0.055) C-Reactive Protein, Quantitative 1.7 mg/L (0-3.3) TP-Aez-J-Type Natriuretic Peptide 27 pg/mL (0-124) Total Protein 7.6 g/dL (6.4-8.2) Albumin 3.8 g/dL (3.4-5.0) Albumin/Globulin Ratio 1.0 (1.0-1.7) Phosphorus Level 3.8 mg/dL (2.6-4.7) Magnesium Level 2.1 mg/dL (1.8-2.4) Medications Current Medications Morphine Sulfate (Morphine Sulfate) 5 mg 1X ONCE IV Last administered on 08/18/20at 12:08; Start 08/18/20 at 11:45; Stop 08/18/20 at 11:46; Status DC Sennosides (Senna) 17.2 mg PRN BID PRN PO CONSTIPATION; Start 08/18/20 at 18:45 Docusate Sodium (Colace) 100 mg PRN DAILY PRN PO HARD STOOLS; Start 08/18/20 at 18:45 Ondansetron HCl (Zofran) 4 mg PRN Q6HRS PRN IVP NAUSEA/VOMITING; Start 08/18/20 at 18:45 Potassium Chloride (Klor-Con) 40 meq 1X PRN PO PER PROTOCOL; Start 08/18/20 at 18:45; Status UNV Magnesium Oxide (Magnesium Oxide) 400 mg BID PO ; Start 08/18/20 at 21:00; Stop 08/20/20 at 09:01; Status UNV Potassium Chloride/Water 100 ml @ 100 mls/hr Q1H IV ; Start 08/18/20 at 18:45; Stop 08/18/20 at 22:44; Status UNV Magnesium Sulfate 50 ml @ 25 mls/hr Q24H IV ; Start 08/18/20 at 18:45; Stop 08/20/20 at 20:44; Status UNV Potassium Chloride/Water 100 ml @ 100 mls/hr Q1H PRN IV low k; Start 08/18/20 at 18:45; Status UNV Dextrose (Dextrose 50%-Water Syringe) 12.5 gm PRN Q15MIN PRN IV SEE COMMENTS; Start 08/18/20 at 18:45 Acetaminophen (Tylenol) 650 mg PRN Q4HRS PRN PO TEMP OVER 100.4F OR MILD PAIN; Start 08/18/20 at 18:45 Enoxaparin Sodium (Lovenox 40mg Syringe) 40 mg Q24H SQ Last administered on 08/18/20at 22:24; Start 08/18/20 at 21:00 Acetaminophen (Tylenol) 650 mg PRN Q6HRS PRN PO MODERATE PAIN 4-6; Start 08/18/20 at 18:45; Stop 08/18/20 at 19:08; Status DC Fentanyl Citrate (Fentanyl 2ml Vial) 50 mcg PRN Q2HR PRN IVP SEVERE PAIN 7-10 Last administered on 08/19/20at 05:59; Start 08/18/20 at 18:45 Cyclobenzaprine HCl (Flexeril) 10 mg PRN Q6HRS PRN PO MUSCLE SPASMS Last administered on 08/19/20at 05:58; Start 08/18/20 at 18:45 Info (Non-Icu Electrolyte Protocol) 1 ea CONT PRN PRN MC SEE COMMENTS; Start 08/18/20 at 19:15 Influenza Virus Vaccine Quadrival (Fluzone Quad Syringe) 0.5 ml ONCE ONCE VAX IM ; Start 08/19/20 at 09:00; Stop 08/19/20 at 09:01 Active Scripts Active Reported Hydrocodone-Apap 5-325 (Hydrocodone Bit/Acetaminophen) 1 Each Tablet 1 Tab PO DAILY PRN Cyclobenzaprine Hcl 10 Mg Tablet 10 Mg PO DAILY Escitalopram Oxalate 10 Mg Tablet 10 Mg PO DAILY Amlodipine Besylate 10 Mg Tablet 10 Mg PO DAILY Benicar (Olmesartan Medoxomil) 40 Mg Tablet 40 Mg PO DAILY Vitals/I & O Vital Sign - Last 24 Hours 08/18/20 08/18/20 08/18/20 08/18/20 10:07 10:07 10:35 11:55 Temp 99.1 99.1 Pulse 98 98 93 87 Resp 16 B/P (MAP) 168/90 (116) 168/90 (116) 150/91 (110) 147/90 (109) Pulse Ox 96 98 96 98 O2 Delivery Room Air Room Air Room Air Room Air 08/18/20 08/18/20 08/18/20 08/18/20 12:04 12:08 12:55 13:55 Pulse 88 82 91 Resp 18 B/P (MAP) 160/88 (112) 126/79 (95) 140/79 (99) Pulse Ox 98 96 97 99 O2 Delivery Room Air Room Air Room Air Room Air 08/18/20 08/18/20 08/18/20 08/18/20 14:55 15:55 16:25 17:25 Pulse 92 90 88 81 B/P (MAP) 132/80 (97) 124/84 (97) 156/83 (107) 135/78 (97) Pulse Ox 99 99 97 97 O2 Delivery Room Air Room Air Room Air Room Air 08/18/20 08/18/20 08/18/20 08/18/20 19:00 19:11 19:41 20:00 Temp 98.7 98.7 Pulse 89 Resp 18 14 B/P (MAP) 131/77 (95) Pulse Ox 95 100 O2 Delivery Room Air Room Air Room Air Room Air 08/18/20 08/19/20 08/19/20 08/19/20 23:00 03:00 05:59 06:30 Temp 97.6 97.8 97.6 97.8 Pulse 67 78 Resp 18 18 16 16 B/P (MAP) 115/74 (88) 114/74 (87) Pulse Ox 94 96 O2 Delivery Room Air Room Air Room Air Room Air Intake and Output 08/18/20 08/18/20 08/19/20 15:00 23:00 07:00 Intake Total 250 ml Output Total 300 ml Balance -50 ml Justicifation of Admission Dx: Justifications for Admission: Justification of Admission Dx: Yes Comments: gait instability, falls TIGIST CARUSO MD Aug 19, 2020 08:41
[2020-08-19] MEDS ORDERED: FLU VACC QS 2020-21(6MOS+)/PF 0.5 ML SYRINGE. VAX IM ONE (09:00)
--- NOTE | 2020-08-19 09:47 | NUR ---
SW following. Discussed with RN, pt from home, room air, regular diet. Dr. Gordon consulted, PT/OT ordered. Med Assist following for self pay status. SW will continue to follow.
[2020-08-19 11:00] VITALS: BP 121/77
--- NOTE | 2020-08-19 11:12 | CONS ---
DATE OF CONSULTATION: 08/19/2020 ATTENDING PHYSICIAN: Jayden Servin MD REASON FOR CONSULTATION: The patient was seen at the request of Dr. Steven for rehab evaluation. HISTORY OF PRESENT ILLNESS: This is a 54-year-old male with history of hypertension, anxiety, chronic lower back pain, status post cervical spine fusion. The patient was told that he had worsening degenerative disk disease of whole body. 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 The patient has been on disability for about 10 years. He does not have any health insurance. He lives alone. He had one step to enter the house. The patient being followed by [facility]. Right now, he is taking Tylenol PM for pain on as needed basis. He had some problems with GI upset taking nonsteroidal anti-inflammatory medication. He denies any trouble with bowel or bladder control. He admits to occasional numbness in his right lower extremity. The patient admits difficulty to sit or stand or walk. The patient admits that he had no balance while walking. The patient admits most of the pain right now is in his mid back area. ALLERGIES: THE PATIENT IS KNOWN ALLERGIC TO CONTRAST MEDIA, IV DYE. PAST MEDICAL HISTORY: Includes bilateral carpal tunnel surgical release, uvular dissection, inguinal hernia repair, nose surgery. FAMILY HISTORY: The patient had family history of rheumatoid arthritis with his mother. RADIOLOGICAL STUDIES: Since admission, he had radiological studies; CT scan of the chest failed to reveal any acute abnormality including thoracic spine; x-rays of pelvis revealed degenerative joint disease and degenerative disk disease changes in the lower lumbar spine. PHYSICAL EXAMINATION: The patient on physical examination today revealed a middle-aged male. He is alert, oriented to time, place, person and circumstance, follows commands appropriately, moves all 4 extremities voluntarily where he had 5/5 grade muscle strength, deep tendon reflexes are 2+ and symmetrical, and he had equal perception of touch and pinprick sensation bilaterally. He had tenderness to palpation over T6-T7 interspinous ligamentous area and also over right lumbar paraspinal muscles extending over to sacroiliac joint area. Straight leg raising test is negative bilaterally. The patient had painful range of motion of all 4 extremity joints. He is independent with bed mobility. I have not tested his transfers or ambulation skills at this time. His skin is intact at this time. No significant cervical, thoracic or lumbar paraspinal muscle spasm was noted at this time. ASSESSMENT: A middle-aged male with chronic lower back pain from degenerative disk disease of lumbar vertebrae without any clinical evidence of ongoing lumbar radiculopathy, subacute thoracic sprain. The patient is status post cervical spinal fusion without any clinical evidence of ongoing cervical radiculopathy or cervical spinal stenosis. RECOMMENDATIONS: Home when medically stable with outpatient followup. He needs to apply for Medicaid to ask social service to help. He also needs to use a cane or a walker while up. I have suggested to obtain a lumbar corset for use while up, to try abdominal binder as lumbar corset while here. Dr. Steven, I appreciate asking me to participate in the care of this interesting patient. I will be glad to see him for followup on as needed basis. ANAND WORRELL MD DR: MARTY/elliot JOB#: [id number] / [id number]
[2020-08-19 15:00] VITALS: BP 128/72
--- NOTE | 2020-08-19 15:57 | RAD ---
C-SPINE COMPLETE W/ FLEX/EXT 08/19/2020 10:59 AM INDICATION: Severe neck pain COMPARISON: None available. TECHNIQUE: AP, lateral, flexion and extension and odontoid views of the cervical spine are provided. FINDINGS/ IMPRESSION: 1. There is anterior cervical discectomy and fusion hardware from C3 through C5 with ventral plate and screws. There is osseous incorporation. No prevertebral edema. No evidence for hardware failure. 2. There is 4 mm anterolisthesis of C5 on C6 upon flexion which becomes neutral upon neutral position and extension. 3. Moderate facet arthropathy. Mild uncovertebral joint disease. Lateral masses of C1 articulate appropriately with the C2 vertebral body. 4. No acute fractures identified. Electronically signed by: Adelia Velazco MD (08/19/2020 3:55 PM) [id number]
--- NOTE | 2020-08-19 16:07 | RAD ---
EXAM: L-SPINE 6V AP/LAT/OBL/FLEX/EXT 08/19/2020 10:52 AM CLINICAL INDICATION:Severe back pain COMPARISON:None TECHNIQUE:AP, right and left oblique, lateral, flexion, extension, and coned-down lateral views of the lumbar spine FINDINGS:There 5 nonrib-bearing lumbar vertebral bodies. There is 6 mm anterolisthesis of L4 on L5, unchanged between flexion and extension. No acute fracture. Moderate disc space narrowing at L5-S1 and mild disc space narrowing at L4-L5. There are small anterior osteophytes at multiple levels. Moderate lower lumbar facet arthrosis. IMPRESSION: Grade 1 spondylolisthesis at L4-L5, no movement between flexion and extension. Moderate degenerative disc disease at L5-S1 and very mild degenerative disc disease elsewhere. Lower lumbar facet arthrosis. Electronically signed by: Sugar Carter MD (08/19/2020 4:03 PM) [id number]
[2020-08-19] MEDS ORDERED: diphenhydrAMINE HCL 25 MG CAPSULE PO PRN (18:30)
[2020-08-19] MEDS: oxyCODONE/APAP 5/325 1 TAB TABLET PO PRN (18:44)
[2020-08-19 19:15] VITALS: BP 144/96
[2020-08-19] MEDS: ENOXAPARIN 40 MG/0.4 ML SYRINGE. SQ SCH (20:37)
[2020-08-19] MEDS: NAPROXEN 500 MG TABLET PO SCH (20:40)
[2020-08-19 21:03] LABS: BILIRUBIN,URINE NEGATIVE (NEG); CLARITY,URINE CLEAR; COLOR,URINE YELLOW; NITRITE,URINE NEGATIVE (NEG); PROTEIN,URINE NEGATIVE (NEG-TRACE)
[2020-08-19 21:10] LABS: BACTERIA,URINE 0 /HPF (0-FEW); RBC,URINE 0 /HPF (0-2); WBC,URINE 0 /HPF (0-4)
[2020-08-19 23:05] VITALS: BP 102/63
[2020-08-20 02:11] LABS: RHEUMATOID FACTOR <10.0 IU/mL (0.0-13.9)
[2020-08-20 03:00] VITALS: BP 126/68
[2020-08-20 07:00] VITALS: BP 123/71
[2020-08-20] MEDS: PANTOPRAZOLE 40 MG TABLET.DR. PO SCH (08:01)
[2020-08-20] MEDS: NAPROXEN 500 MG TABLET PO SCH ×2 (08:02→20:55)
--- NOTE | 2020-08-20 09:36 | NUR ---
SW following. Discussed with RN, pt on room air, regular diet. PT/OT recommending outpatient therapy. Med Assist working with pt for disability and Medicaid application. RN anticipates pt will discharge home today with self care. SW will continue to follow.
[2020-08-20 11:00] VITALS: BP 156/98
--- NOTE | 2020-08-20 11:31 | PDOC ---
PROGRESS NOTES Date of Service: DATE: 08/20/20 TIME: 11:30 Chief Complaint Chief Complaint discharge dx Assessment/Plan Intractable back pain Hypertension Anxiety History of cervical fusion GAIT INSTABILITY WITH FALLS, FREQUENT, needs a walker moderate sized posterior disc protrusion centered to the left of midline at C6- 7, extending into the inferior aspect of the left neural foramen with associated effacement of the left nerve root sleeve IN 2016 Previous anterior spinal fusion and instrumentation from C3 through C5.Moderate posterior disc protrusion on the left at C6-7 with considerable left foraminal encroachment and mild central spinal stenosis, MYELOGRAM PLAN Admit to medicine for further management IV and p.o. pain control Rehab consult with Dr. WORRELL for possible joint steroid injections Consider neurology consult if there worsening weakness of his upper or lower extremities ESR for suspicion for ankylosing spondylitis AP pelvic x-ray PT OT Lovenox for DVT prophylaxis Regular diet Full code Discussed with RN and SW Disposition inpatient care as above Surrogate decision maker is Kyala Farrell psa ESR X RAY L/S CONSULT NEUROSURGERY x ray c/s 37 MIN pt exam, chart review d/c planning , > 50% of time spent with exam, chart review, pt care coordination Justifications for Admission Justifications for Admission Other Justification History of Present Illness History of Present Illness Chief Complaint: Chief Complain: Back pain History of Present Illness: HPI: Patient is 54-year-old male with past medical history of hypertension and anxiety and worsening back pain for the last couple months. 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 Unfortunately, in the past few days his back pain is gotten so bad that he felt like it was stabbing him. Patient states when he was attempting to stand he can only stand for a few minutes and then he would need to hold onto something because he felt that his thoracic back was caving in on him. Patient denies any red flag symptoms such as bladder or bowel incontinence or lower extremity weakness numbness or tingling. He is unable to elevate his extremities over his head because of pain. When externally rotating his legs he complained of pain mainly in his lower back and in the hip area. Patient states that he did see a doctor in the clinic and said that he might have ankylosing spondylitis. Denies rashes, blurry vision, constipation, diarrhea, or syncope or falls. Patient does note that his mother has a history of rheumatoid arthritis Past Medical/Surgical History: PMH/PSH: Past Medical History: Anxiety, Hypertension, back pain Past Surgical History: cervical neck fusion,stephon carpal tunnel, uvula removed, inguinal hernia,nose sx Allergies: Allergies: Coded Allergies: Iodinated Contrast Media - IV Dye (Verified Allergy, Severe, 05/10/14) Family History: Family History: Mom with a history of rheumatoid arthritis Social History: Social History: Smoking Status: Former Smoker Alcohol Use: Occasionally Drug Use: None Vitals Vitals Vital Signs Date Time Temp Pulse Resp B/P (MAP) Pulse Ox O2 Delivery O2 Flow Rate FiO2 08/20/20 07:45 Room Air 08/20/20 07:00 97.6 69 20 123/71 (88) 95 97.6 Physical Exam Physical Exam Physcial Exam: GEN: No apparent distress. Alert and oriented HEENT: Normal cephalic, atraumatic, external auditory canals are patent EYES: Extraocular muscles are intact, pupil are equally round and reactive to light and accommodation MUSCULOSKELETAL: Well developed , well nourished, limited range of motion due to pain. 5 out of 5 strength in all extremities. Tenderness along the paraspinal border in the thoracic region around T5 ENDOCRINE: No thyromegaly was palpated LYMPHATICS: No cervical chain or axillary nodes were noted HEMATOPOIETIC: No bruising NECK: Supple, no JVD, no thyromegaly was noted LUNGS: Clear to auscultation in all lung west without rhonchi or wheezing HEART: RRR, S!, S2 present. Peripheral pulses intact, no obvious murmurs noted ABDOMEN: Soft, nontender. Positive bowel sounds, no organomegaly, normal bowel sounds EXTREMITIES: Without clubbing, cyanosis, or edema. Pedal pulses intact. Negative Homans sign NEUROLOGIC: Normal speech and tone. A&O x 3, moves all extremities, no obvious focal deficits PSYCHIATRIC: Normal affect, normal mood. Stable SKIN: No ulcerations or rashes, good skin turgor, no jaundice VASCULAR: Good capillary refill, neurovascular bundle appears to be intact General: Alert, Oriented X3, Cooperative, No acute distress Heart: Regular rate, Normal S1, Normal S2 Lungs: Clear Abdomen: Normal bowel sounds, Soft, No tenderness Extremities: No clubbing, No cyanosis, No edema, No tenderness/swelling Skin: No significant lesion Labs LABS Laboratory Tests Test 08/19/20 20:00 Urine Collection Type Unknown Urine Color Yellow Urine Clarity Clear Urine pH 6.0 (<5.0-8.0) Urine Specific Hastings 1.020 (1.000-1.030) Urine Protein Negative mg/dL (NEG-TRACE) Urine Glucose (UA) Negative mg/dL (NEG) Urine Ketones (Stick) Negative mg/dL (NEG) Urine Blood Negative (NEG) Urine Nitrite Negative (NEG) Urine Bilirubin Negative (NEG) Urine Urobilinogen Dipstick 1.0 mg/dL (0.2 mg/dL) Urine Leukocyte Esterase Negative (NEG) Urine RBC 0 /HPF (0-2) Urine WBC 0 /HPF (0-4) Urine Bacteria 0 /HPF (0-FEW) Urine Mucus Slight /LPF Assessment and Plan Assessmemt and Plan Problems Medical Problems: (1) Back pain Status: Acute (2) Falls Status: Acute (3) Weakness Status: Acute Comment Review of Relevant I have reviewed the following items oliva (where applicable) has been applied. Labs Laboratory Tests Test 08/18/20 22:58 08/19/20 04:05 08/19/20 20:00 Rheumatoid Factor <10.0 IU/mL (0.0-13.9) White Blood Count 8.1 x10^3/uL (4.0-11.0) Red Blood Count 5.40 x10^6/uL (4.30-5.70) Hemoglobin 15.9 g/dL (13.0-17.5) Hematocrit 48.2 % (39.0-53.0) Mean Corpuscular Volume 89 fL (79-100) Mean Corpuscular Hemoglobin 29 pg (25-35) Mean Corpuscular Hemoglobin Concent 33 g/dL (31-37) Red Cell Distribution Width 13.7 % (11.5-14.5) Platelet Count 252 x10^3/uL (140-400) Neutrophils (%) (Auto) 66 % (31-73) Lymphocytes (%) (Auto) 21 % (24-48) Monocytes (%) (Auto) 10 % (0-9) Eosinophils (%) (Auto) 3 % (0-3) Basophils (%) (Auto) 1 % (0-3) Neutrophils # (Auto) 5.3 x10^3/uL (1.8-7.7) Lymphocytes # (Auto) 1.7 x10^3/uL (1.0-4.8) Monocytes # (Auto) 0.8 x10^3/uL (0.0-1.1) Eosinophils # (Auto) 0.2 x10^3/uL (0.0-0.7) Basophils # (Auto) 0.1 x10^3/uL (0.0-0.2) Sodium Level 139 mmol/L (136-145) Potassium Level 3.7 mmol/L (3.5-5.1) Chloride Level 103 mmol/L (98-107) Carbon Dioxide Level 28 mmol/L (21-32) Anion Gap 8 (6-14) Blood Urea Nitrogen 15 mg/dL (8-26) Creatinine 0.8 mg/dL (0.7-1.3) Estimated GFR (Cockcroft-Gault) 101.5 Glucose Level 89 mg/dL (70-99) Calcium Level 8.7 mg/dL (8.5-10.1) Phosphorus Level 3.8 mg/dL (2.6-4.7) Magnesium Level 2.1 mg/dL (1.8-2.4) Prostate Specific Antigen 0.44 ng/mL (0.00-4.00) Urine Collection Type Unknown Urine Color Yellow Urine Clarity Clear Urine pH 6.0 (<5.0-8.0) Urine Specific Hastings 1.020 (1.000-1.030) Urine Protein Negative mg/dL (NEG-TRACE) Urine Glucose (UA) Negative mg/dL (NEG) Urine Ketones (Stick) Negative mg/dL (NEG) Urine Blood Negative (NEG) Urine Nitrite Negative (NEG) Urine Bilirubin Negative (NEG) Urine Urobilinogen Dipstick 1.0 mg/dL (0.2 mg/dL) Urine Leukocyte Esterase Negative (NEG) Urine RBC 0 /HPF (0-2) Urine WBC 0 /HPF (0-4) Urine Bacteria 0 /HPF (0-FEW) Urine Mucus Slight /LPF Laboratory Tests Test 08/19/20 20:00 Urine Collection Type Unknown Urine Color Yellow Urine Clarity Clear Urine pH 6.0 (<5.0-8.0) Urine Specific Hastings 1.020 (1.000-1.030) Urine Protein Negative mg/dL (NEG-TRACE) Urine Glucose (UA) Negative mg/dL (NEG) Urine Ketones (Stick) Negative mg/dL (NEG) Urine Blood Negative (NEG) Urine Nitrite Negative (NEG) Urine Bilirubin Negative (NEG) Urine Urobilinogen Dipstick 1.0 mg/dL (0.2 mg/dL) Urine Leukocyte Esterase Negative (NEG) Urine RBC 0 /HPF (0-2) Urine WBC 0 /HPF (0-4) Urine Bacteria 0 /HPF (0-FEW) Urine Mucus Slight /LPF Medications Current Medications Morphine Sulfate (Morphine Sulfate) 5 mg 1X ONCE IV Last administered on 08/18/20at 12:08; Start 08/18/20 at 11:45; Stop 08/18/20 at 11:46; Status DC Sennosides (Senna) 17.2 mg PRN BID PRN PO CONSTIPATION; Start 08/18/20 at 18:45 Docusate Sodium (Colace) 100 mg PRN DAILY PRN PO HARD STOOLS; Start 08/18/20 at 18:45 Ondansetron HCl (Zofran) 4 mg PRN Q6HRS PRN IVP NAUSEA/VOMITING; Start 08/18/20 at 18:45 Potassium Chloride (Klor-Con) 40 meq 1X PRN PO PER PROTOCOL; Start 08/18/20 at 18:45; Status UNV Magnesium Oxide (Magnesium Oxide) 400 mg BID PO ; Start 08/18/20 at 21:00; Stop 08/20/20 at 09:01; Status UNV Potassium Chloride/Water 100 ml @ 100 mls/hr Q1H IV ; Start 08/18/20 at 18:45; Stop 08/18/20 at 22:44; Status UNV Magnesium Sulfate 50 ml @ 25 mls/hr Q24H IV ; Start 08/18/20 at 18:45; Stop 08/20/20 at 20:44; Status UNV Potassium Chloride/Water 100 ml @ 100 mls/hr Q1H PRN IV low k; Start 08/18/20 at 18:45; Status UNV Dextrose (Dextrose 50%-Water Syringe) 12.5 gm PRN Q15MIN PRN IV SEE COMMENTS; Start 08/18/20 at 18:45 Acetaminophen (Tylenol) 650 mg PRN Q4HRS PRN PO TEMP OVER 100.4F OR MILD PAIN Last administered on 08/19/20at 10:44; Start 08/18/20 at 18:45 Enoxaparin Sodium (Lovenox 40mg Syringe) 40 mg Q24H SQ Last administered on 08/19/20at 20:37; Start 08/18/20 at 21:00 Acetaminophen (Tylenol) 650 mg PRN Q6HRS PRN PO MODERATE PAIN 4-6; Start 08/18/20 at 18:45; Stop 08/18/20 at 19:08; Status DC Fentanyl Citrate (Fentanyl 2ml Vial) 50 mcg PRN Q2HR PRN IVP SEVERE PAIN 7-10 Last administered on 08/19/20at 05:59; Start 08/18/20 at 18:45 Cyclobenzaprine HCl (Flexeril) 10 mg PRN Q6HRS PRN PO MUSCLE SPASMS Last administered on 08/19/20at 18:02; Start 08/18/20 at 18:45 Info (Non-Icu Electrolyte Protocol) 1 ea CONT PRN PRN MC SEE COMMENTS; Start 08/18/20 at 19:15 Influenza Virus Vaccine Quadrival (Fluzone Quad Syringe) 0.5 ml ONCE ONCE VAX IM Last administered on 08/20/20at 09:40; Start 08/19/20 at 09:00; Stop 08/19/20 at 09:01; Status DC Naproxen (Naprosyn) 500 mg BID PO ; Start 08/19/20 at 21:00 Pantoprazole Sodium (Protonix) 40 mg DAILYAC PO Last administered on 08/20/20at 08:01; Start 08/20/20 at 07:30 Oxycodone/ Acetaminophen (Percocet 5/325) 1 tab PRN Q4HRS PRN PO MODERATE- SEVERE PAIN Last administered on 08/19/20at 18:44; Start 08/19/20 at 18:30 Diphenhydramine HCl (Benadryl) 25 mg PRN QHS PRN PO ITCHING; Start 08/19/20 at 18:30 Active Scripts Active Reported Hydrocodone-Apap 5-325 (Hydrocodone Bit/Acetaminophen) 1 Each Tablet 1 Tab PO DAILY PRN Cyclobenzaprine Hcl 10 Mg Tablet 10 Mg PO DAILY Escitalopram Oxalate 10 Mg Tablet 10 Mg PO DAILY Amlodipine Besylate 10 Mg Tablet 10 Mg PO DAILY Benicar (Olmesartan Medoxomil) 40 Mg Tablet 40 Mg PO DAILY Vitals/I & O Vital Sign - Last 24 Hours 08/19/20 08/19/20 08/19/20 08/19/20 15:00 18:44 19:15 19:50 Temp 98.0 97.4 98.0 97.4 Pulse 92 94 Resp 18 18 B/P (MAP) 128/72 (90) 144/96 (112) Pulse Ox 98 96 O2 Delivery Room Air Room Air Room Air Room Air 08/19/20 08/19/20 08/20/20 08/20/20 20:00 23:05 03:00 07:00 Temp 98.2 98.0 97.6 98.2 98.0 97.6 Pulse 80 84 69 Resp 20 20 20 B/P (MAP) 102/63 (76) 126/68 (87) 123/71 (88) Pulse Ox 94 95 95 O2 Delivery Room Air Room Air Room Air Room Air 08/20/20 07:45 O2 Delivery Room Air Intake and Output 08/19/20 08/19/20 08/20/20 15:00 23:00 07:00 Intake Total 520 ml 300 ml 480 ml Balance 520 ml 300 ml 480 ml Justicifation of Admission Dx: Justifications for Admission: Justification of Admission Dx: Yes TIGIST CARUSO MD Aug 20, 2020 11:31
[2020-08-20] MEDS ORDERED: NAPR-683 PO (11:34)
[2020-08-20] MEDS ORDERED: DOCU-153 PO (11:34)
[2020-08-20] MEDS ORDERED: PANT40TA77 PO (11:34)
--- NOTE | 2020-08-20 11:35 | DISCH ---
DISCHARGE INSTRUCTIONS Condition on Discharge Condition on Discharge: Stable Activity After Discharge Activity Instructions for Disc: No restrictions Driving Instructions after Dis: Do not drive Weight Bearing Status after Di: No restrictions, Partial weight bearing Diet after Discharge Diet after Discharge: Cardiac Diet Texture: Regular Swallowing Supervision: 1 to 1 cueing Checks after Discharge Checks after discharge: Check blood press - daily Contacting the DR. after DC Call your doctor for: If your condition worsens Treatment/Equipment after DC Adaptive Equipment Issued: None, Front wheeled walker TIGIST CARUSO MD Aug 20, 2020 11:35
--- NOTE | 2020-08-20 12:53 | PDOC ---
Provider Note Date of Service: DATE: 08/20/20 TIME: 12:44 Provider Note Patient seen and examined at 1145 c/o neck and upper back pain reports unsteadiness and falling reports chronic low back pain which remains stable history of cervical [place] [address] Damon, has some residual left arm numbness/ tingling currently most of his pain is in the upper back between should blades exam- normal strength and , reflexes and sensation, no significant tenderness with palpation of the spine reviewed x rays ordered cervical and thoracic MRI Justifications for Admission Other Justification intractable back pain ALMA TERAN MD Aug 20, 2020 12:53
--- NOTE | 2020-08-20 15:41 | RAD ---
MRI Cervical Spine Without Contrast History: Cervical stenosis, falls Technique: Multiplanar, multi sequential noncontrast MR imaging was performed of the cervical spine. Comparison: Radiographs 08/20/2020; cervical spine MRI January 07, 2016; post myelogram CT April 27, 2016 Findings: There is anterior cervical fusion hardware C3-C5 with resultant susceptibility artifact. There is likely interbody fusion at C3-4 and C4-5. Cervical cord is partially obscured near the C4-5 level from artifact created by hardware. Remainder of the cervical cord caliber is within normal limits without defined signal change. Cervical vertebral body stature is overall maintained. There is very mild grade 1 anterior spondylolisthesis at C5-6 as seen previously. There is mild disc desiccation C5-6 and C6-7. There is trace C6-7 endplate edema likely reactive/degenerative in etiology. There are posterior annular tears at C5-6 and C6-7. C2-C3: Spinal canal and neural foramina are adequate. C3-C4: Neural foramina and spinal canal are overall adequate. C4-C5: Spinal canal and neural foramina are not significantly narrowed. Artifact partially obscures the right neural foramen. There is mild buckling of the ligamentum flavum. C5-C6: There is again very minimal disc osteophyte complex. There is mild buckling of the ligamentum flavum. Central canal is borderline 10 mm. There is again mild facet degenerative change. Neural foramina are not significantly narrowed. C6-C7: There is again very minimal disc osteophyte complex, superimposed about 2 mm AP protrusion/very small extrusion indenting the ventral thecal sac with contact of the ventral cord. Central canal is narrowed to about 7 mm likely slightly greater. There is uncovertebral and facet degenerative change. There is mild narrowing of the left neural foramen, right neural foramen not significantly narrowed. C7-T1: There is protrusion eccentric to the far right lateral recess about 2 mm AP apparently new since previous exam, mild indentation upon the ventral thecal sac in the far right lateral recess with minimal narrowing of the far right lateral recess. Central canal is adequate about 11 mm. There is facet and uncovertebral degenerative change bilaterally. There is mild bilateral neural foramina compromise proximally greater on the left. Impression: 1. There is a new small shallow protrusion in the far right lateral recess C6-7 with minimal narrowing of the far right lateral recess. There is spinal stenosis about 7 mm at C6-7 in part by protrusion/small extrusion near the ventral surface of the cord. 2. There is anterior cervical fusion hardware C3-C5 with associated artifact. There is likely interbody fusion C3-4 and C4-5. Electronically signed by: Kiko Doe MD (08/20/2020 3:38 PM) [facility]
--- NOTE | 2020-08-20 15:48 | RAD ---
MRI Thoracic Spine without contrast History:Falls, cervical stenosis Technique: Multiplanar, multi sequential noncontrast MR imaging was performed of the thoracic spine. Comparison: February 27, 2011 Findings: Thoracic vertebral body stature and AP alignment are maintained. Thoracic cord caliber is within normal limits without defined or expansile signal change. There is trace edema of the anterior, inferior corner of T10 likely reactive/degenerative in etiology. There is mild degenerative disc disease T4-5 and T5-T6. There is no new significant thoracic spinal stenosis. Levels with abnormalities include: C7-T1: There is a small protrusion in the far right lateral recess with mild narrowing of the far right lateral recess. T1-T2: Facet degenerative change contributes to moderate narrowing of the left neural foramen from posteriorly. T4-5: There is a very shallow protrusion in the far left lateral recess without significant spinal stenosis. T5-T6: There is protrusion eccentric to the far left lateral recess with minimal indentation upon the ventral thecal sac, very mild narrowing of the far left lateral recess. There is facet degenerative change contributing to mild posterior narrowing of the left neural foramen. Impression: 1. There is no new significant thoracic spinal stenosis. There are shallow protrusions as stated. Electronically signed by: Kiko Doe MD (08/20/2020 3:45 PM) [facility]
[2020-08-20] MEDS: oxyCODONE/APAP 5/325 1 TAB TABLET PO PRN (16:35)
[2020-08-20 19:15] VITALS: BP 134/91
[2020-08-20] MEDS: ENOXAPARIN 40 MG/0.4 ML SYRINGE. SQ SCH (20:55)
[2020-08-20] MEDS: CYCLOBENZAPRINE 10 MG TABLET. PO PRN (20:55)
[2020-08-20 23:19] VITALS: BP 112/75
[2020-08-21 03:07] VITALS: BP 96/60
[2020-08-21 07:00] VITALS: BP 121/94
[2020-08-21] MEDS: PANTOPRAZOLE 40 MG TABLET.DR. PO SCH (08:04)
[2020-08-21] MEDS: NAPROXEN 500 MG TABLET PO SCH (09:00)
--- NOTE | 2020-08-21 09:19 | PDOC ---
Provider Note Date of Service: DATE: 08/21/20 TIME: 09:19 Provider Note MRI scans reviewed neurologically intact may dc from NS standpoint f/u as OP as needed Justifications for Admission Other Justification intractable back pain ALMA TERAN MD Aug 21, 2020 09:19
--- NOTE | 2020-08-21 10:45 | PDOC ---
PROGRESS NOTES Date of Service: DATE: 08/21/20 TIME: 10:45 Chief Complaint Chief Complaint discharge dx Assessment/Plan Intractable back pain Hypertension Anxiety History of cervical fusion GAIT INSTABILITY WITH FALLS, FREQUENT, needs a walker moderate sized posterior disc protrusion centered to the left of midline at C6- 7, extending into the inferior aspect of the left neural foramen with associated effacement of the left nerve root sleeve IN 2016 Previous anterior spinal fusion and instrumentation from C3 through C5.Moderate posterior disc protrusion on the left at C6-7 with considerable left foraminal encroachment and mild central spinal stenosis, MYELOGRAM PLAN Admit to medicine for further management IV and p.o. pain control Rehab consult with Dr. WORRELL for possible joint steroid injections Consider neurology consult if there worsening weakness of his upper or lower extremities ESR for suspicion for ankylosing spondylitis AP pelvic x-ray PT OT Lovenox for DVT prophylaxis Regular diet Full code Discussed with RN and SW Disposition inpatient care as above Surrogate decision maker is Kayla Farrell psa ESR X RAY L/S CONSULT NEUROSURGERY x ray c/s 37 MIN pt exam, chart review d/c planning , > 50% of time spent with exam, chart review, pt care coordination Justifications for Admission Justifications for Admission Other Justification History of Present Illness History of Present Illness Chief Complaint: Chief Complain: Back pain History of Present Illness: HPI: Patient is 54-year-old male with past medical history of hypertension and anxiety and worsening back pain for the last couple months. 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 Unfortunately, in the past few days his back pain is gotten so bad that he felt like it was stabbing him. Patient states when he was attempting to stand he can only stand for a few minutes and then he would need to hold onto something because he felt that his thoracic back was caving in on him. Patient denies any red flag symptoms such as bladder or bowel incontinence or lower extremity weakness numbness or tingling. He is unable to elevate his extremities over his head because of pain. When externally rotating his legs he complained of pain mainly in his lower back and in the hip area. Patient states that he did see a doctor in the clinic and said that he might have ankylosing spondylitis. Denies rashes, blurry vision, constipation, diarrhea, or syncope or falls. Patient does note that his mother has a history of rheumatoid arthritis Past Medical/Surgical History: PMH/PSH: Past Medical History: Anxiety, Hypertension, back pain Past Surgical History: cervical neck fusion,stephon carpal tunnel, uvula removed, inguinal hernia,nose sx Allergies: Allergies: Coded Allergies: Iodinated Contrast Media - IV Dye (Verified Allergy, Severe, 05/10/14) Family History: Family History: Mom with a history of rheumatoid arthritis Social History: Social History: Smoking Status: Former Smoker Alcohol Use: Occasionally Drug Use: None Vitals Vitals Vital Signs Date Time Temp Pulse Resp B/P (MAP) Pulse Ox O2 Delivery O2 Flow Rate FiO2 08/21/20 08:00 Room Air 08/21/20 07:00 98.2 95 18 121/94 (103) 99 98.2 Physical Exam Physical Exam Physcial Exam: GEN: No apparent distress. Alert and oriented HEENT: Normal cephalic, atraumatic, external auditory canals are patent EYES: Extraocular muscles are intact, pupil are equally round and reactive to light and accommodation MUSCULOSKELETAL: Well developed , well nourished, limited range of motion due to pain. 5 out of 5 strength in all extremities. Tenderness along the paraspinal border in the thoracic region around T5 ENDOCRINE: No thyromegaly was palpated LYMPHATICS: No cervical chain or axillary nodes were noted HEMATOPOIETIC: No bruising NECK: Supple, no JVD, no thyromegaly was noted LUNGS: Clear to auscultation in all lung west without rhonchi or wheezing HEART: RRR, S!, S2 present. Peripheral pulses intact, no obvious murmurs noted ABDOMEN: Soft, nontender. Positive bowel sounds, no organomegaly, normal bowel sounds EXTREMITIES: Without clubbing, cyanosis, or edema. Pedal pulses intact. Negative Homans sign NEUROLOGIC: Normal speech and tone. A&O x 3, moves all extremities, no obvious focal deficits PSYCHIATRIC: Normal affect, normal mood. Stable SKIN: No ulcerations or rashes, good skin turgor, no jaundice VASCULAR: Good capillary refill, neurovascular bundle appears to be intact General: Alert, Oriented X3, Cooperative, No acute distress Heart: Regular rate, Normal S1, Normal S2 Lungs: Clear Abdomen: Normal bowel sounds, Soft, No tenderness Extremities: No clubbing, No cyanosis, No edema, No tenderness/swelling Skin: No significant lesion Assessment and Plan Assessmemt and Plan Problems Medical Problems: (1) Back pain Status: Acute (2) Falls Status: Acute (3) Weakness Status: Acute Comment Review of Relevant I have reviewed the following items oliva (where applicable) has been applied. Labs Laboratory Tests Test 08/19/20 20:00 Urine Collection Type Unknown Urine Color Yellow Urine Clarity Clear Urine pH 6.0 (<5.0-8.0) Urine Specific [place] 1.020 (1.000-1.030) Urine Protein Negative mg/dL (NEG-TRACE) Urine Glucose (UA) Negative mg/dL (NEG) Urine Ketones (Stick) Negative mg/dL (NEG) Urine Blood Negative (NEG) Urine Nitrite Negative (NEG) Urine Bilirubin Negative (NEG) Urine Urobilinogen Dipstick 1.0 mg/dL (0.2 mg/dL) Urine Leukocyte Esterase Negative (NEG) Urine RBC 0 /HPF (0-2) Urine WBC 0 /HPF (0-4) Urine Bacteria 0 /HPF (0-FEW) Urine Mucus Slight /LPF Medications Current Medications Morphine Sulfate (Morphine Sulfate) 5 mg 1X ONCE IV Last administered on 08/18/20at 12:08; Start 08/18/20 at 11:45; Stop 08/18/20 at 11:46; Status DC Sennosides (Senna) 17.2 mg PRN BID PRN PO CONSTIPATION; Start 08/18/20 at 18:45 Docusate Sodium (Colace) 100 mg PRN DAILY PRN PO HARD STOOLS; Start 08/18/20 at 18:45 Ondansetron HCl (Zofran) 4 mg PRN Q6HRS PRN IVP NAUSEA/VOMITING; Start 08/18/20 at 18:45 Potassium Chloride (Klor-Con) 40 meq 1X PRN PO PER PROTOCOL; Start 08/18/20 at 18:45; Status UNV Magnesium Oxide (Magnesium Oxide) 400 mg BID PO ; Start 08/18/20 at 21:00; Stop 08/20/20 at 09:01; Status UNV Potassium Chloride/Water 100 ml @ 100 mls/hr Q1H IV ; Start 08/18/20 at 18:45; Stop 08/18/20 at 22:44; Status UNV Magnesium Sulfate 50 ml @ 25 mls/hr Q24H IV ; Start 08/18/20 at 18:45; Stop 08/20/20 at 20:44; Status UNV Potassium Chloride/Water 100 ml @ 100 mls/hr Q1H PRN IV low k; Start 08/18/20 at 18:45; Status UNV Dextrose (Dextrose 50%-Water Syringe) 12.5 gm PRN Q15MIN PRN IV SEE COMMENTS; Start 08/18/20 at 18:45 Acetaminophen (Tylenol) 650 mg PRN Q4HRS PRN PO TEMP OVER 100.4F OR MILD PAIN Last administered on 08/19/20at 10:44; Start 08/18/20 at 18:45 Enoxaparin Sodium (Lovenox 40mg Syringe) 40 mg Q24H SQ Last administered on 08/20/20at 20:55; Start 08/18/20 at 21:00 Acetaminophen (Tylenol) 650 mg PRN Q6HRS PRN PO MODERATE PAIN 4-6; Start 08/18/20 at 18:45; Stop 08/18/20 at 19:08; Status DC Fentanyl Citrate (Fentanyl 2ml Vial) 50 mcg PRN Q2HR PRN IVP SEVERE PAIN 7-10 Last administered on 08/19/20at 05:59; Start 08/18/20 at 18:45 Cyclobenzaprine HCl (Flexeril) 10 mg PRN Q6HRS PRN PO MUSCLE SPASMS Last administered on 08/20/20at 20:55; Start 08/18/20 at 18:45 Info (Non-Icu Electrolyte Protocol) 1 ea CONT PRN PRN MC SEE COMMENTS; Start 08/18/20 at 19:15 Influenza Virus Vaccine Quadrival (Fluzone Quad Syringe) 0.5 ml ONCE ONCE VAX IM Last administered on 08/20/20at 09:40; Start 08/19/20 at 09:00; Stop 08/19/20 at 09:01; Status DC Naproxen (Naprosyn) 500 mg BID PO ; Start 08/19/20 at 21:00 Pantoprazole Sodium (Protonix) 40 mg DAILYAC PO Last administered on 08/21/20at 08:04; Start 08/20/20 at 07:30 Oxycodone/ Acetaminophen (Percocet 5/325) 1 tab PRN Q4HRS PRN PO MODERATE- SEVERE PAIN Last administered on 08/20/20at 16:35; Start 08/19/20 at 18:30 Diphenhydramine HCl (Benadryl) 25 mg PRN QHS PRN PO ITCHING; Start 08/19/20 at 18:30 Active Scripts Active Pantoprazole Sodium (Pantoprazole Sodium) 40 Mg Tablet.dr 40 Mg PO DAILYAC 30 Days Dok (Docusate Sodium) 100 Mg Capsule 100 Mg PO PRN DAILY PRN 30 Days Naprosyn (Naproxen) 500 Mg Tablet 500 Mg PO BID 30 Days Reported Hydrocodone-Apap 5-325 (Hydrocodone Bit/Acetaminophen) 1 Each Tablet 1 Tab PO DAILY PRN Cyclobenzaprine Hcl 10 Mg Tablet 10 Mg PO DAILY Escitalopram Oxalate 10 Mg Tablet 10 Mg PO DAILY Amlodipine Besylate 10 Mg Tablet 10 Mg PO DAILY Benicar (Olmesartan Medoxomil) 40 Mg Tablet 40 Mg PO DAILY Vitals/I & O Vital Sign - Last 24 Hours 08/20/20 08/20/20 08/20/20 08/20/20 11:00 16:35 18:00 19:15 Temp 97.7 99.0 97.7 99.0 Pulse 95 92 Resp 20 18 B/P (MAP) 156/98 (117) 134/91 (105) Pulse Ox 98 96 O2 Delivery Room Air Room Air Room Air Room Air 08/20/20 08/20/20 08/21/20 08/21/20 19:40 23:19 03:07 07:00 Temp 97.7 97.5 98.2 97.7 97.5 98.2 Pulse 89 74 95 Resp 18 18 18 B/P (MAP) 112/75 (87) 96/60 (72) 121/94 (103) Pulse Ox 95 93 99 O2 Delivery Room Air Room Air Room Air Room Air 08/21/20 08:00 O2 Delivery Room Air Intake and Output 08/20/20 08/20/20 08/21/20 15:00 23:00 07:00 Intake Total 360 ml 480 ml Balance 360 ml 480 ml Justicifation of Admission Dx: Justifications for Admission: Justification of Admission Dx: Yes TIGIST CARUSO MD Aug 21, 2020 10:45
[2020-08-21 11:00] VITALS: BP 120/96
--- NOTE | 2020-08-21 13:41 | DISCH ---
DISCHARGE INSTRUCTIONS Condition on Discharge Condition on Discharge: Stable Activity After Discharge Activity Instructions for Disc: Activity as tolerated Exercise Instruction after Dis: Progress as tolerated Driving Instructions after Dis: Do not drive Weight Bearing Status after Di: As tolerated Diet after Discharge Diet after Discharge: Regular Diet Texture: Regular Liquid Texture: Thin Liquid Swallowing Supervision: 1 to 1 cueing Checks after Discharge Checks after discharge: Check blood press - daily Contacting the DR. after DC Call your doctor for: If your condition worsens Follow-Up Follow Up With: Primary care provider within 2 weeks Treatment/Equipment after DC Adaptive Equipment Issued: None, Front wheeled walker Warfarin Follow-Up Warfarin Follow UP: SEE PCP NEXT WEEK TIGIST CARUSO MD Aug 21, 2020 13:41
[2020-08-23 18:09] LABS: ANA INTERP Negative (.)
== END 2020-08-21 14:00 | disposition home or self-care (01) ==
LOC: ER 10:07 → ED HOLD 15:13 → 4 NORTH 17:14
PROVIDERS: ADMIT Internal Medicine; ATTEND Internal Medicine
DX: G89.29 Other chronic pain (principal); M54.9 Dorsalgia, unspecified; I10 Essential (primary) hypertension; F41.9 Anxiety disorder, unspecified; M43.19 Spondylolisthesis, multiple sites in spine; M51.36 Other intervertebral disc degeneration, lumbar region; M51.37 Other intervertebral disc degeneration, lumbosacral region; R53.1 Weakness; Z98.890 Other specified postprocedural states; Z87.891 Personal history of nicotine dependence; Z91.81 History of falling; Z23 Encounter for immunization; Z79.899 Other long term (current) drug therapy
CPT/HCPCS: 36415; 71250; 72052; 72114; 72141; 72146; 72170; 80048; 80053; 81001; 83735; 83880; 84100; 84484; 85025; 85379; 86038; 86140; 86431; 90471; 90686; 96372; 96374; 96375; 96376; 97161; 97166; 99284; G0103; G0378; G0379; J1650; J2270; J3010

== ENCOUNTER → 2021-04-22 | Outpatient (CLI) | payer MEDICAID ==
[~2021-04-22] MED LIST changes: +DOCU-153 PO; +DULO20CA PO; +LOSA-73 PO; +METH-562 PO; +METO25TA2 PO; +NAPR-683 PO; +PANT40TA77 PO; +TRAM50TA PO; +methylPREDNISolone ACETATE 40 MG/ML VIAL. ONE; +methylPREDNISolone ACETATE 80 MG/ML VIAL. ONE; +tylenol pm
--- NOTE | 2021-04-22 13:48 | PDOC1 ---
INITIAL PAIN CONSULT DATE OF SERVICE: DOS: DATE: 04/22/21 TIME: 13:40 CHIEF COMPLAINT: Chief Complaint: Neck and bilateral upper extremity and upper back pain HISTORY OF PRESENT ILLNESS: 55-year-old male presents history of pain in the base the neck and shoulders upper back mid back for about 6 to 7 months now not result of any specific injury or accident that he is aware of, but getting worse with time and activity patient reports its painful in the base the neck and shoulder sometimes anteriorly in the shoulder as well radiating upper extremities into the pinky fingers on the left greater than right arms but present bilaterally patient reports no loss of motor function but fatigability the upper extremities that accompanies this as well. Patient describes it as constant pain in the base the neck sharp and shooting stabbing at times in the base the neck and upper back mid back also tingling and numbness in the upper extremities and aching in the neck itself patient reports is worse with standing walking repetitive motions with the upper extremities weightbearing weight lifting but has no difficulty with range of motion of the shoulders. Patient reports it wakes him from sleep least 4-5 times a night side effect of bowel bladder control does affect ability walk he does use a cane which he has with him using in his right hand. Patient has had physical therapy in the past and also chiropractic treatment and exe rcises doing currently all of which decrease the pain but only moderately patient reports he is taking hydrocodone as well as cyclobenzaprine which does help he is tried tramadol which was not significantly helpful. Patient did have MRI scan of the neck and thoracic spine in July 2020 showing shallow protrusions at C7T1 T4-5 T5-6 eccentric to the left. Patient rates his disabi lity rating 0-10 10 being the worst as a 8 with him home as well as ability social activity occupational 10 with recreation sexual behavior and self-care and 7 with life support activities. PAST MEDICAL HISTORY: PMH: Hypertension, hearing loss, sleep apnea, arthritis PREVIOUS SURGERIES: Past Surgical Hx: Cervical fusion anterior 2006, tonsillectomy, hernia repair, carpal tunnel repair CURRENT MEDICATIONS: Current Meds: Active Scripts Medications Dose Route/Sig Max Daily Dose Days Date Category Cymbalta (Duloxetine Hcl) 20 Mg Capsule.dr 1 Cap PO DAILY 04/22/21 Reported Toprol Xl (Metoprolol Succinate) 25 Mg Tab.er.24h 1 Tab PO DAILY 30 04/22/21 Reported Methocarbamol 750 Mg Tablet 750 Mg PO QID 04/22/21 Reported [tylenol pm] 04/22/21 Reported Losartan Potassium 50 Mg Tablet 50 Mg PO DAILY 04/22/21 Reported Tramadol Hcl 50 Mg Tablet 50 Mg PO Q6HRS PRN 04/22/21 Reported ALLERGIES; Allergies: Coded Allergies: Iodinated Contrast Media (Verified Allergy, Severe, 05/10/14) shellfish derived (Verified Allergy, Intermediate, rash, 04/22/21) FAMILY HISTORY: Family Hx: No major medical problems or conditions that he is aware of SOCIAL HISTORY: Social Hx: Patient does not patti alcohol does not smoke quit 20 years ago does not use any illegal illicit recreational drugs is lives with spouse lives locally in [place] reports he is currently on disability. REVIEW OF SYSTEMS: ROS: Positive for those items mentioned in history of present illness, all systems are reviewed, otherwise negative ,and are complete full and well-documented on patient's chart. PHYSICAL EXAM: VS: Blood pressure is 145/104 pulse 96 respirations are 18 temperature is 98.3 F height is 5 foot 9 inches weight is 226 pounds PE: PHYSICAL EXAMINATION: GENERAL: The patient is awake, alert, oriented, appropriate, very pleasant in demeanor. HEENT: Shows normocephalic, atraumatic. Extraocular movements are intact and symmetrical. Oral cavity: Mucous membranes moist and pink. Dentition is intact. NECK: Shows anterior throat supple without palpable lymphadenopathy noted. Swallow reflex symmetrical. CHEST: Shows normal on inspection. Breath sounds are clear bilaterally, no rales rhonchi wheezes auscultated. HEART: Shows S1, S2 clear. No murmurs auscultated. ABDOMEN: Soft, nontender, nondistended, obese. No palpable organomegaly is noted. No rebound or guarding demonstrated. BACK: Shows spine grossly in the midline. Normal-appearing cervical lordotic curvature. Cervical paraspinous muscles show symmetrical inspection on palpation some moderate tenderness diffusely bilaterally diffusely without significant radiation. Patient has full rotation motion cervical spine both laterally as well as full extension full forward flexion without significant limitation or difficulty. There is slightly increased thoracic kyphosis, some minor flattening of the lumbar lordotic curvature. Lumbar paraspinous muscles show symmetrical on inspection, on palpation shows some moderate tenderness diffusely throughout the upper, middle and lower distribution of the paraspinous muscles bilaterally and also into the lower thoracic paraspinous musculature, firm and tender, but without specific trigger points, without radiation of pain. The patient has good rotational motion of the lumbar spine, both laterally as well as extension and flexion without significant difficulty. No tenderness over the spinous processes, sacrum or sacroiliac regions. EXTREMITIES: Lower extremities show deep tendon reflexes 2+ in the patellar and tendo calcaneus tendons. Motor exam is 5 on a scale of 5 with right dorsi flexion, extension, quadriceps and hamstring flexion and 5/5 on the left. Peripheral pulses are 1 posterior tibial. No peripheral edema is noted bilaterally. Lower extremities are warm and dry to touch, equal in color and appearance. Upper extremity show deep tendon reflexes 2+ in the bicep and tricep tendons motor exam is 4 to scale 5" symmetrical heritage consultant strength bicep and tricep flexion. Peripheral pulses are 2+ radial no peripheral edema is noted. Shoulder shrug strong and intact without loss of strength on resistance but with moderate tenderness more on the left than the right. This is true with abduction of the shoulder 90 degrees without loss of strength on resistance. SKIN: Shows warm and dry, good turgor. No edema. No sores, rashes or bruising throughout. IMPRESSION: Impression: 55-year-old male with 6 to 7-month history pain base the neck upper extremities and radicular fashion. MRI scan cervical and thoracic spine as noted Hypertension Sleep apnea Plan: Options were discussed with the patient including conservative medical management physical therapies interventional techniques. Patient would like to pursue interventional techniques. We discussed a cervical epidural steroid injections description as well as anatomical models to describe the procedure. Risks were discussed including but not limited to: Bleeding, infection, possibility of epidural hematoma and subsequent neurological compromise, dural puncture, headaches, spinal cord and/or nerve damage, side effects of steroid medication, and poor results regarding pain control. Patient understands and wished to proceed. Return to clinic in approximately 2 weeks for follow-up was counseled as to return appointment activity level and side effects to be aware of. Procedure cervical epidural steroid injection at the C 7-T1 level, using local anesthetic under sterile prep and drape using C-arm fluoroscopic guidance under local anesthesia medications injected ;120 mg Depo-Medrol +5 mL normal saline and 2 mL contrast; condition at discharge is stable patient tolerated procedure well. and had no complications AUGEI KRAUSE MD Apr 22, 2021 13:48
--- NOTE | 2021-04-22 13:49 | PDOC4 ---
Procedure Note: Procedure Note: Patient was consented for cervical epidural steroid injection. Risks were discussed including but not limited to: Bleeding, infection, possibility of epidural hematoma and subsequent neurological compromise, dural puncture, headaches, spinal cord and/or nerve damage, side effects of steroid medication, and poor results regarding pain control. Patient understands and wished to proceed. Procedure is cervical epidural steroid injection at the C 7-T1 level, using local anesthetic under sterile prep and drape using C-arm fluoroscopic guidance under local anesthesia medications injected ;120 mg Depo-Medrol +5 mL normal saline and 2 mL contrast; condition at discharge is stable patient tolerated p rocedure well. and had no complications AUGIE KRAUSE MD Apr 22, 2021 13:49
== END | disposition home or self-care (01) ==
LOC: PNCL 10:19
PROVIDERS: ATTEND Anesthesiology
DX: M54.2 Cervicalgia (principal); I10 Essential (primary) hypertension; G47.30 Sleep apnea, unspecified; I48.91 Unspecified atrial fibrillation; K21.9 Gastro-esophageal reflux disease without esophagitis; J45.909 Unspecified asthma, uncomplicated; M06.9 Rheumatoid arthritis, unspecified; F41.9 Anxiety disorder, unspecified; F32.9 Major depressive disorder, single episode, unspecified; Z87.891 Personal history of nicotine dependence; Z79.899 Other long term (current) drug therapy; Z98.890 Other specified postprocedural states; Z72.89 Other problems related to lifestyle; Z91.041 Radiographic dye allergy status; Z91.013 Allergy to seafood
CPT/HCPCS: 62321; J1030; J1040

== ENCOUNTER → 2021-05-26 | Outpatient (CLI) | payer MEDICAID ==
[~2021-05-26] MED LIST changes: +DOCU-148 PO; -DOCU-153 PO; -methylPREDNISolone ACETATE 40 MG/ML VIAL. ONE; -methylPREDNISolone ACETATE 80 MG/ML VIAL. ONE
--- NOTE | 2021-05-26 17:13 | KCIC ---
Scrotal ultrasound: Reason for examination: Right testicular mass. The right testicle measures 4 x 3.3 x 2.3 cm in greatest dimension and shows normal vascular flow. Th ere appear to be several small cystic lesions in the right testicle with the largest measuring 1.2 cm in greatest dimension. There also appears to be 3 x 2.2 x 1.3 cm septated cyst in the right epididym is which corresponds to the area of clinical concern. There is no evidence of hydrocele or varicocele in the right hemiscrotum. The left testicle measures 3.6 x 2.6 x 1.7 cm in greatest dimension and shows good vascular flow. No left testicular masses are seen. No abnormality seen at the left epididymis. No hydrocele or varicoce le is seen in the left scrotum. IMPRESSION: Several small cysts in the right testicle measuring up to 1.2 cm in greatest dimension. 3 cm septated cystic lesion in the right epididymis correspond to the area of clinical concern. Electronically signed by: Kavya Cook MD (05/26/2021 5:11 PM) [place]
== END ==
LOC: KCIC US 14:07
PROVIDERS: ATTEND Family Medicine
DX: N44.2 Benign cyst of testis (principal); N50.89 Other specified disorders of the male genital organs
CPT/HCPCS: 76870

== ENCOUNTER → 2021-06-02 | Outpatient (CLI) | payer MEDICAID ==
[~2021-06-02] MED LIST changes: +DULO60CA6 PO; +HYDR12.58 PO; +IOHEXOL 180 MG/ML 10 ML VIAL. ONE; +LOSA100T14 PO; +METO100T5 PO; +methylPREDNISolone ACETATE 40 MG/ML VIAL. ONE; +methylPREDNISolone ACETATE 80 MG/ML VIAL. ONE
--- NOTE | 2021-06-02 12:19 | PDOC ---
Progress Note - Pain Clinic Date of Service: DOS: DATE: 06/02/21 TIME: 12:16 Diagnosis: Dx: Lumbar radiculopathy with lumbar degenerative disc disease Cervical radiculopathy with cervical degenerative disease and cervical postlaminectomy syndrome History or Present Illness: HPI: 55-year-old male returns for follow-up status post cervical epidural steroid injection x1. Patient reports about 75% improvement in the base the neck and shoulders is doing very happy with his progress patient reports that he has new pain in the low back and bilateral lower extremities which becoming much more noticeable now that his neck and shoulders are doing much better patient reports the pain is in the low back rating the posterior gluteus posterior thighs posterior calves into the medial aspect of the feet and soles of the feet bilaterally some on the anterior thighs as well mostly posteriorly and across the low back patient reports a burning cramping tight constant can be severe as well with walking standing changing positions bending repetitive motions or stooping patient reports that wakes him from sleep at least once or twice a night is been taking some Tylenol PM which helps to some extent but is still waking him patient reports pain is an 8 on scale 10 is worse over the past week 6 on average for its least is a 5 today. Patient reports no bowel or bladder incontinence. Physical Exam: VS: Blood pressure is 161/100 pulse is 107 respirations 16 temperature is 98.7 F height is 5 foot 9 inches weight is 228 pounds PE: PHYSICAL EXAMINATION: GENERAL: The patient is awake, alert, oriented, appropriate, very pleasant in demeanor HEENT: Shows normocephalic, atraumatic. Extraocular movements are intact and symmetrical. Oral cavity: Mucous membranes moist and pink. Dentition is intact. NECK: Shows anterior throat supple without palpable lymphadenopathy noted. Swallow reflex symmetrical. CHEST: Shows normal on inspection. Breath sounds are clear bilaterally, distant but no rales or rhonchi auscultated. HEART: Shows S1, S2 clear. No murmurs auscultated. ABDOMEN: Soft, nontender, nondistended, obese. No palpable organomegaly is noted. BACK: Shows spine grossly in the midline. Normal-appearing cervical lordotic curvature. Cervical paraspinous muscles show symmetrical inspection, on palpation some mild tenderness diffusely in the inferior aspect of the cervical paraspinous musculature without radiation. Patient shows full rotation motion cervical spine with lateral as well as extension flexion without significant difficulty or pain reported. There is slightly increased thoracic kyphosis, some minor flattening of the lumbar lordotic curvature. Lumbar paraspinous muscles show symmetrical on inspection, on palpation shows some moderate tendern ess diffusely throughout the upper, middle and lower distribution of the paraspinous muscles, but without specific trigger points, without radiation of pain. The patient has good rotational motion of the lumbar spine, both laterally as well as extension and flexion without significant difficulty. No tenderness over the spinous processes, sacrum or sacroiliac regions. EXTREMITIES: Lower extremities show deep tendon reflexes 2+ in the patellar and tendo calcaneus tendons. Motor exam is 4 on a scale of 5 with right dorsiflexion, extension, quadriceps and hamstring flexion and 4/5 on the left. Peripheral pulses are 1+ posterior tibial. No peripheral edema is noted bilaterally. Lower extremities are warm and dry to touch, equal in color and appearance. 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 Peripheral pulses are 2+ bilaterally in the radial distribution, shoulder shrug strong and intact without loss of strength on resistance bilaterally. SKIN: Shows warm and dry, good turgor. No edema. No sores, rashes or bruising throughout. Procedure: Procedure: Options were discussed with the patient. Patient's old chart reviewed his medication regimen updated current review of systems updated today as well. We will proceed with a lumbar epidural steroid injection today with fluoroscopic guidance. Risks were discussed including but not limited to: Bleeding, infect ion, possibility of epidural hematoma and subsequent neurological compromise, dural puncture, headaches, spinal cord and/or nerve damage, side effects of steroid medication, and poor results regarding pain control. Patient understands and wished to proceed. Patient return to clinic in approximately 2 weeks for follow-up, was counseled as to return appointment activity level and s tanika effects to be aware of. Medication Injected: Med Injected: Procedure is lumbar epidural steroid injection under local anesthetic using sterile prep and drape at the L5-S1 level using C-arm fluoroscopic guidance in both AP and lateral views medications injected is 120 mg Depo-Medrol +10mL preservative-free normal saline and 2 mL contrast- condition at discharge is stable patient tolerated procedure well had no complications. Condition at Discharge: Condition at Discharge: Condition at discharge stable, patient tolerated procedure well had no complications. AUGIE KRAUSE MD Jun 02, 2021 12:19
--- NOTE | 2021-06-02 12:20 | PDOC4 ---
Procedure Note: ICD 10 Code: ICD 10 Code: M 54.17 M 51.36 Procedure Note: Patient was consented for lumbar epidural steroid injection with fluoroscopic guidance. Risks were discussed including but not limited to: Bleeding, infection, possibility of epidural hematoma and subsequent neurological compromise, dural puncture, headaches, spinal cord and/or nerve damage, side effects of steroid medication, and poor results regarding pain control. Patient understands and wished to proceed. Procedure is lumbar epidural steroid injection under local anesthetic using sterile prep and drape at the L5-S1 level using C-arm fluoroscopic guidance in both AP and lateral views medications injected is 120 mg Depo-Medrol +10mL preservative-free normal saline and 2 mL contrast- condition at discharge is stable patient tolerated procedure well had no complications. AUGIE KRAUSE MD Jun 02, 2021 12:20
== END ==
LOC: PNCL 11:14
PROVIDERS: ATTEND Anesthesiology
DX: M51.16 Intervertebral disc disorders with radiculopathy, lumbar region (principal); I10 Essential (primary) hypertension; M19.90 Unspecified osteoarthritis, unspecified site; I48.91 Unspecified atrial fibrillation; F41.9 Anxiety disorder, unspecified; F32.9 Major depressive disorder, single episode, unspecified; J45.909 Unspecified asthma, uncomplicated; K21.9 Gastro-esophageal reflux disease without esophagitis; Z87.891 Personal history of nicotine dependence; Z79.899 Other long term (current) drug therapy; Z98.890 Other specified postprocedural states
CPT/HCPCS: 62323; J1030; J1040; Q9965

== ENCOUNTER → 2021-07-18 | Outpatient (CLI) | payer MEDICAID ==
[~2021-07-18] MED LIST changes: -methylPREDNISolone ACETATE 40 MG/ML VIAL. ONE; -methylPREDNISolone ACETATE 80 MG/ML VIAL. ONE
--- NOTE | 2021-07-18 08:58 | PDOC ---
Progress Note - Pain Clinic Date of Service: DOS: DATE: 07/18/21 TIME: 08:54 Diagnosis: Dx: Cervical radiculopathy with cervical degenerative disease and cervical postlaminectomy syndrome Lumbar radiculopathy with lumbar degenerative disc disease History or Present Illness: HPI: 55-year-old male returns for follow-up status post lumbar epidural steroid injection x1 and cervical epidural steroid injection x1. Patient reports he was doing very well near 100% improvement with both until the last week or so he was putting a trailer hitch on his truck and aggravated the pain in the neck and the right arm now significant pain which is new finding in the shoulder as well posteriorly on the right and left as well as the upper mid back which he had not had previously. Patient reports pain rating the right arm again mostly in the medial aspect into the forearm and into the fourth and fifth fingers on the ri ght side patient rates as a 10 on scale 10 is worse over the past week 7 on average 5 its least and is a 5 today. Patient reports a stabbing sharp radiating constant can be severe and unbearable with repetitive motions reaching his arm past 90 degrees laterally as well as reaching forward or any weightbearing with the arm and hand with some tingling and numbness in the fingers as well. Patient reports prior that he was doing very well with all daily activities sleeping better doing work activities household activities travel with greater ease and comfort as well. Patient reports low back continues to do well and is not having any significant pain in that region at this time. Physical Exam: VS: Blood pressure 150/91 pulse 93 respirations 18 temperature is 98.9 F height is 5 feet 9 inches weight is 228 pounds. PE: PHYSICAL EXAMINATION: GENERAL: The patient is awake, alert, oriented, appropriate, very pleasant in demeanor HEENT: Shows normocephalic, atraumatic. Extraocular movements are intact and symmetrical. Oral cavity: Mucous membranes moist and pink. Dentition is intact . NECK: Shows anterior throat supple without palpable lymphadenopathy noted. Swallow reflex symmetrical. CHEST: Shows normal on inspection. Breath sounds are clear bilaterally, distant but no rales or rhonchi. HEART: Shows S1, S2 clear. No murmurs auscultated. ABDOMEN: Soft, nontender, nondistended, obese. No palpable organomegaly is noted. BACK: Shows spine grossly in the midline. Normal-appearing cervical lordotic curvature. Cervical paraspinous muscles show symmetrical with inspection, on palpation some moderate tenderness diffusely bilaterally diffusely without significant radiation. Patient does show good rotation of motion with some minor tenderness with right lateral rotation past 45 degrees as well as extension but not with forward flexion on the left lateral rotation. There is slightly increased thoracic kyphosis, some minor flattening of the lumbar lordotic curvature. Lumbar paraspinous muscles show symmetrical on inspection, on palpation shows some moderate tenderness diffusely throughout the upper, middle and lower distribution of the paraspinous muscles without specific trigger points, without radiation of pain. The patient has good rotational motion of the lumbar spine, both laterally as well as extension and flexion without significant difficulty. EXTREMITIES: Lower extremities show deep tendon reflexes 2+ in the patellar and tendo calcaneus tendons. Motor exam is 4 on a scale of 5 with right dorsiflexion, extension, quadriceps and hamstring flexion and 4/5 on the left. Peripheral pulses are 1 posterior tibial. No peripheral edema is noted bilaterally. Lower extremities are warm and dry to touch, equal in color and appearance. 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 Shoulder shrug strong and intact with some moderate pain with resistance on the right side but no loss of strength. SKIN: Shows warm and dry, good turgor. No edema. No sores, rashes or bruising throughout. Procedure: Procedure: Options were discussed with the patient. Patient's old chart was reviewed his current medication regimen updated current review of systems updated today as w katherine. We will proceed with a cervical epidural steroid injection today with fluoroscopic guidance. Risks were discussed including but not limited to: Bleeding, infection, possibility of epidural hematoma and subsequent neurological compromise, dural puncture, headaches, spinal cord and/or nerve damage, side effects of steroid medication, and poor results regarding pain control. Patient understands and wished to proceed. Patient will return to the clinic in approximate 2 weeks for follow-up, was counseled as to return appointment, activity level, and side effects to be aware of. Medication Injected: Med Injected: Procedure cervical epidural steroid injection at the C6-7 level, using local anesthetic under sterile prep and drape using C-arm fluoroscopic guidance under local anesthesia medications injected ;120 mg Depo-Medrol +5 mL normal saline and 2 mL contrast; condition at discharge is stable patient tolerated procedure well. and had no complications Condition at Discharge: Condition at Discharge: Condition at discharge is stable, patient tolerated the procedure well had no complications. AUGIE KRAUSE MD Jul 18, 2021 08:58
--- NOTE | 2021-07-18 08:59 | PDOC4 ---
Procedure Note: ICD 10 Code: ICD 10 Code: M54.12 M50.30 M 96.1 Procedure Note: Patient was consented for cervical epidural steroid injection with fluoroscopic guidance. Risks were discussed including but not limited to: Bleeding, infection, possibility of epidural hematoma and subsequent neurological compromise, dural puncture, headaches, spinal cord and/or nerve damage, side effects of steroid medication, and poor results regarding pain control. Patient understands and wished to proceed. Procedure cervical epidural steroid injection at the C6-7 level, using local a nesthetic under sterile prep and drape using C-arm fluoroscopic guidance under local anesthesia medications injected ;120 mg Depo-Medrol +5 mL normal saline and 2 mL contrast; condition at discharge is stable patient tolerated procedure well. and had no complications AUGIE KRAUSE MD Jul 18, 2021 08:59
== END | disposition home or self-care (01) ==
LOC: PNCL 08:12
PROVIDERS: ATTEND Anesthesiology
DX: M50.10 Cervical disc disorder with radiculopathy, unspecified cervical region (principal); M96.1 Postlaminectomy syndrome, not elsewhere classified; M51.16 Intervertebral disc disorders with radiculopathy, lumbar region; I10 Essential (primary) hypertension; I48.91 Unspecified atrial fibrillation; J45.909 Unspecified asthma, uncomplicated; K21.9 Gastro-esophageal reflux disease without esophagitis; M19.90 Unspecified osteoarthritis, unspecified site; F41.9 Anxiety disorder, unspecified; F32.9 Major depressive disorder, single episode, unspecified; G47.30 Sleep apnea, unspecified; Z87.891 Personal history of nicotine dependence; Z79.899 Other long term (current) drug therapy; Z98.890 Other specified postprocedural states; Z72.89 Other problems related to lifestyle; Z91.013 Allergy to seafood; Z91.041 Radiographic dye allergy status
CPT/HCPCS: 62321; Q9965

== ENCOUNTER 2021-10-23 00:49 | Emergency (ER) | payer MEDICAID ==
[~2021-10-23] VITALS: Ht 175.3 cm; Wt 105.9 kg
[~2021-10-23 00:49] MED LIST changes: +CYCL10TA19 PO; -CYCL10TA2 PO; -DULO60CA6 PO; +DULO60CA7 PO; -IOHEXOL 180 MG/ML 10 ML VIAL. ONE
--- NOTE | 2021-10-23 01:18 | PHYS DOC ---
Past Medical History Past Medical History: Anxiety, Hypertension Additional Past Medical Histor: back pain Past Surgical History: Other Additional Past Surgical Histo: neck fusion,stephon carpal tunnel, uvula removed, inguinal hernia,nose sx Smoking Status: Former Smoker Alcohol Use: Occasionally Drug Use: None General Adult EDM: Chief Complaint: FLANK PAIN HPI: HPI: Patient is a 55 year old here with report of left thoracic and left flank pain, radiating to his left upper quadrant of his abdomen. The pain is worse with movement and palpation. He denies any nausea or vomiting, denies constipation or diarrhea. He denies urinary symptoms. He denies chest pain or dyspnea. He denies rash. He denies any acute injury or trauma. He does have a longstanding history of recurrent back pain issues, he has a history of cervical and thoracic disc disease, he has received epidural injections in the past, though not recently. Review of Systems: Review of Systems: Constitutional: Denies fever or chills. [] HENT: Denies nasal congestion or sore throat. [] Respiratory: Denies cough or shortness of breath. [] Cardiovascular: Denies chest pain or edema. [] GI: Denies abdominal pain, nausea, vomiting, diarrhea or constipation. Denies melena or hematochezia. : Denies urinary symptoms. Musculoskeletal: Chronic back pain, also acute left-sided thoracic back pain Integument: Denies rash. [] Neurologic: Denies headache, focal weakness or sensory changes. [] Psychiatric: Denies depression or anxiety. [] Heart Score: C/O Chest Pain: No Risk Factors: Risk Factors: DM, Current or recent (<one month) smoker, HTN, HLP, family history of CAD, obesity. Risk Scores: Score 0 - 3: 2.5% MACE over next 6 weeks - Discharge Home Score 4 - 6: 20.3% MACE over next 6 weeks - Admit for Clinical Observation Score 7 - 10: 72.7% MACE over next 6 weeks - Early Invasive Strategies Allergies: Allergies: Allergies Coded Allergies Type Severity Reaction Last Updated Verified Iodinated Contrast Media Allergy Severe 05/10/14 Yes shellfish derived Allergy Intermediate rash 04/22/21 Yes Physical Exam: PE: Constitutional: Well developed, well nourished, no acute distress, non-toxic appearance. [] HENT: Normocephalic, atraumatic Neck: Normal range of motion, no tenderness, supple, no stridor. [] Cardiovascular:Heart rate regular rhythm, +2 radial and +2 posterior tibial pulses bilaterally Lungs & Thorax: Bilateral breath sounds clear to auscultation [] Abdomen: Abdomen is soft, nondistended, nontender to palpation, no palpable masses organomegaly. No palpable pulsatile mass. No audible bruit. No flank or abdominal ecchymoses. No fluid wave or ascites noted. Skin: Warm, dry, no erythema, no rash. [] Back: Left-sided mid thoracic paraspinal soft tissue tenderness with mild spasm noted. Palpation reproduces pain. No midline tenderness or step-offs. Extremities: No tenderness, no cyanosis, no clubbing, ROM intact, no edema. No calf tenderness. Neurologic: Alert and oriented X 3, normal motor function, normal sensory function, no focal deficits noted. Gait is steady. 5 out of 5 motor strength in all 4 extremities. Psychologic: Affect normal, judgement normal, mood normal. [] EKG: EKG: EKG is interpreted at 0144 Rhythm is sinus Rate is 90 bpm [place] is left No STEMI Radiology/Procedures: Radiology/Procedures: IMAGING REPORT Signed PATIENT: MARQUEZ AVENDANO ACCOUNT: [id number] : 1965 LOCATION: ER AGE: 55 SEX: M EXAM STATUS: REG ER ORD. PHYSICIAN: CLIFFORD MEJIA DO REASON: left sided flank and abdominal pain PROCEDURE: CT ABDOMEN PELVIS WO CONTRAST CT abdomen and pelvis without contrast PQRS statement: CT scans at this facility use dose reduction including either automated exposure control, iterative reconstructions, and /or weight based radiation dosing via mA and kV modification when appropriate to reduce radiation dose to as low as reasonably achievable. HISTORY: Left-sided flank pain. Left-sided abdominal pain. Abdomen findings: 4 mm solid nodule left lower lobe image 32. There is wall thickening and surrounding edema of the lower esophagus leading up to the gastroesophageal junction lower lumbar disc disease and facet arthritis. Hypodensity liver likely fatty. Tiny subcentimeter left renal cortical hypodense foci are too small to characterize most likely small hemorrhagic cysts. No urinary calculi or hydronephrosis. Aortoiliac artery calcified plaque. Pancreas, adrenals, spleen, gallbladder unremarkable. No obstruction or inflammation the GI tract. The appendix is not visualized could be obscured by surrounding bowel loops or surgically absent. No abdominal fluid. Pelvis findings: No bladder calculi. Bladder, prostate, rectum and bones are unremarkable. IMPRESSION: 1. No acute process. No urinary calculi or hydronephrosis. 2. Several small subcentimeter hyperdense cortical lesions of the left kidney ar e present which are too small to characterize definitively on this examination. These are statistically most likely small hemorrhagic hyperdense cysts. Small hyperdense neoplastic cortical nodules are not excluded. These could be definitively characterized with outpatient MR imaging. 3. 4 mm solid pulmonary nodule of the left lower lobe, per Fleischner guidelines if the patient has risk factors for malignancy optional CT chest follow-up in 12 months would be advised, otherwise no follow-up is necessary. Electronically signed by: Chantell Hui MD (10/23/2021 3:03 AM) [facility] [place]CTATED and SIGNED BY: CHANTELL HUI MD DATE: 10/23/21 [id number] 0 Course & Med Decision Making: Course & Med Decision Making Pertinent Labs and Imaging studies reviewed. (See chart for details) The patient is given IV Toradol for pain. He is resting comfortably. He manifests no evidence of distress. Imaging studies are unremarkable here. I discussed the findings, differential diagnosis and plan of care with the patient. Clinically, his symptoms and exams are most consistent with musculoskeletal etiology of pain. He is comfortable with the plan for discharge home and prescription for muscle relaxers. I recommended that he follow-up with his primary care physician. No indication for further imaging, invasive exams or admission at this time. Return precautions are given. He is comfortable with this plan. Dragon Disclaimer: Dragon Disclaimer: This electronic medical record was generated, in whole or in part, using a voice recognition dictation system. Departure Departure Impression: Primary Impression: Left flank pain Disposition: HOME / SELF CARE / HOMELESS Condition: STABLE Referrals: GANESH DALEY MD (PCP) Patient Instructions: Back Pain, Adult, Flank Pain Additional Instructions: Use the muscle relaxer as needed/as directed. You may alternate ice and heat as well as perform gentle stretching. Return to the ER for fever 100.4 or higher, abdominal pain, vomiting, weakness, chest pain, shortness of breath or if you develop any painful shingles type rash or any other concerns. Follow-up with your primary care physician peer Scripts Cyclobenzaprine Hcl (CYCLOBENZAPRINE HCL) 10 Mg Tablet 1 TAB PO BID for muscle spasm, #14 TAB Prov: CLIFFORD MEJIA DO 10/23/21 CLIFFORD MEJIA DO Oct 23, 2021 01:18
[2021-10-23 01:45] LABS: BILIRUBIN,URINE NEGATIVE (NEG); CLARITY,URINE CLEAR; COLOR,URINE YELLOW; NITRITE,URINE NEGATIVE (NEG); PROTEIN,URINE NEGATIVE (NEG-TRACE); UROBILINOGEN,URINE 0.2 mg/dL (0.2 mg/dL)
[2021-10-23] MEDS ORDERED: KETOROLAC 30 MG/ML VIAL. IVP ONE (01:45)
[2021-10-23 01:51] LABS: BACTERIA,URINE 0 /HPF (0-FEW); RBC,URINE 0 /HPF (0-2); WBC,URINE 0 /HPF (0-4)
[2021-10-23 01:58] LABS: BASO # 0.1 x10^3/uL (0.0-0.2); BASO % 1 % (0-3); EOS # 0.4 x10^3/uL (0.0-0.7); EOS % 4 % (0-3); HEMATOCRIT 42.8 % (39.0-53.0); HEMOGLOBIN 14.4 g/dL (13.0-17.5); LYMPH # 2.2 x10^3/uL (1.0-4.8); LYMPH % 21 % (24-48); MEAN CORPUSCULAR HEMOGLOBIN 30 pg (25-35); MEAN CORPUSCULAR HGB CONC 34 g/dL (31-37); MEAN CORPUSCULAR VOLUME 90 fL (79-100); MONO # 1.7 x10^3/uL (0.0-1.1); MONO % 16 % (0-9); NEUT # 6.1 x10^3/uL (1.8-7.7); NEUT % 58 % (31-73); PLATELET COUNT 296 x10^3/uL (140-400); RED BLOOD COUNT 4.74 x10^6/uL (4.30-5.70); RED CELL DISTRIBUTION WIDTH 13.4 % (11.5-14.5); WHITE BLOOD COUNT 10.6 x10^3/uL (4.0-11.0)
[2021-10-23 02:03] LABS: CALCIUM 8.5 mg/dL (8.5-10.1); CREATININE 0.8 mg/dL (0.7-1.3); GFR 101.1; POTASSIUM 4.6 mmol/L (3.5-5.1)
--- NOTE | 2021-10-23 02:08 | EKG ---
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
[2021-10-23 02:09] LABS: ALBUMIN 3.3 g/dL (3.4-5.0); ALBUMIN/GLOBULIN RATIO 0.8 (1.0-1.7); TOTAL BILIRUBIN 0.4 mg/dL (0.2-1.0); TOTAL PROTEIN 7.3 g/dL (6.4-8.2)
--- NOTE | 2021-10-23 03:06 | RAD ---
CT abdomen and pelvis without contrast PQRS statement: CT scans at this facility use dose reduction including either automated exposure cont rol, iterative reconstructions, and /or weight based radiation dosing via mA and kV modification when appropriate to reduce radiation dose to as low as reasonably achievable. HISTORY: Left-sided flank pain. Left-sided abdominal pain. Abdomen findings: 4 mm solid nodule left lower lobe image 32. There is wall thickening and surroundin g edema of the lower esophagus leading up to the gastroesophageal junction lower lumbar disc disease and facet arthritis. Hypodensity liver likely fatty. Tiny subcentimeter left renal cortical hypodense foci are too small to characterize most likely small hemorrhagic cysts. No urinary calculi or hydron ephrosis. Aortoiliac artery calcified plaque. Pancreas, adrenals, spleen, gallbladder unremarkable. N o obstruction or inflammation the GI tract. The appendix is not visualized could be obscured by surro unding bowel loops or surgically absent. No abdominal fluid. Pelvis findings: No bladder calculi. Bladder, prostate, rectum and bones are unremarkable. IMPRESSION: 1. No acute process. No urinary calculi or hydronephrosis. 2. Several small subcentimeter hyperdense cortical lesions of the left kidney are present which are t oo small to characterize definitively on this examination. These are statistically most likely small hemorrhagic hyperdense cysts. Small hyperdense neoplastic cortical nodules are not excluded. These co uld be definitively characterized with outpatient MR imaging. 3. 4 mm solid pulmonary nodule of the left lower lobe, per Fleischner guidelines if the patient has r isk factors for malignancy optional CT chest follow-up in 12 months would be advised, otherwise no fo llow-up is necessary. Electronically signed by: Tal Hui MD (10/23/2021 3:03 AM) [facility]
[2021-10-23] MEDS ORDERED: CYCL10TA19 PO (03:43)
[2021-10-23 03:45] VITALS: BP 169/78
== END 2021-10-23 03:51 | disposition home or self-care (01) ==
LOC: ER 00:49
DX: R10.12 Left upper quadrant pain (principal); M54.6 Pain in thoracic spine; M54.2 Cervicalgia; I10 Essential (primary) hypertension; Z87.891 Personal history of nicotine dependence; Z98.890 Other specified postprocedural states
CPT/HCPCS: 36415; 74176; 80053; 81001; 83690; 85025; 93005; 96374; 99285; J1885

== ENCOUNTER 2022-01-12 03:28 | Emergency (ER) | payer MEDICAID ==
[~2022-01-12] VITALS: Ht 175.3 cm; Wt 107.8 kg
[2022-01-12] MEDS ORDERED: KETOROLAC 15 MG/ML VIAL. IVP ONE (03:45)
--- NOTE | 2022-01-12 04:03 | PHYS DOC ---
Past Medical History Past Medical History: Anxiety, Hypertension Additional Past Medical Histor: DJD Past Surgical History: Other Additional Past Surgical Histo: THORACIC NECK SX, BX CARPAL TUNNEL, ING HERNIA Smoking Status: Former Smoker Alcohol Use: Occasionally Drug Use: None General Adult EDM: Chief Complaint: FLANK PAIN HPI: HPI: Patient is a 56 year old male who presents with recurrent, years long left- sided chest pain, left upper quadrant pain and left flank pain. He has been seen multiple times for the same pain, by his primary care physician, as well as by pain management. He also has a history of chronic cervical pain and cervical radiculopathy symptoms. These are unchanged. He denies any chest pressure. He denies any dyspnea. He describes some vague pleuritic pain. The pain is mostly worse with palpation, movement and changes in position. He denies any abdominal pain, nausea, vomiting. He denies dizziness or diaphoresis. Denies syncope or near syncope. He denies any lower back pain or lower abdominal pain. He denies urinary symptoms. He denies any direct injury, fall, trauma. He denies fevers or chills. He is taking gabapentin, and he reports it is not helping. He took a dose of Advil PM last night, which reportedly usually helps, but did not help him tonight. He denies any specific changes in his symptoms today. Review of Systems: Review of Systems: Constitutional: Denies fever or chills. [] Eyes: Denies change in visual acuity. [] HENT: Denies nasal congestion or sore throat. [] Respiratory: Denies cough or shortness of breath. [] Cardiovascular: Left-sided chest pain, left flank pain. GI: Left upper quadrant pain, denies nausea, vomiting, diarrhea, constipation : Denies urinary symptoms or incontinence. Musculoskeletal: Left sided back and flank pain. Integument: Denies rash. [] Neurologic: Denies headache, focal weakness or sensory changes. [place] numbness, tingling, motor weakness Psychiatric: Denies depression or anxiety. [] Heart Score: C/O Chest Pain: Yes HEART Score for Chest Pain: HEART Score for Chest Pain Response (Comments) Value History Slighlty/Non-Suspicious 0 ECG Nonspecific Repolarizatio 1 Age >45 - < 65 1 Risk Factors 1 or 2 Risk Factors 1 Troponin < Normal Limit 0 Total 3 Risk Factors: Risk Factors: DM, Current or recent (<one month) smoker, HTN, HLP, family history of CAD, obesity. Risk Scores: Score 0 - 3: 2.5% MACE over next 6 weeks - Discharge Home Score 4 - 6: 20.3% MACE over next 6 weeks - Admit for Clinical Observation Score 7 - 10: 72.7% MACE over next 6 weeks - Early Invasive Strategies Current Medications: Current Medications Medications (Trade) Dose Ordered Sig/Anders Start Time Stop Time Status Last Admin Dose Admin Ketorolac Tromethamine (Toradol 15mg Vial) 15 mg 1X ONCE 01/12/22 03:45 01/12/22 03:46 DC Allergies: Allergies: Allergies Coded Allergies Type Severity Reaction Last Updated Verified Iodinated Contrast Media Allergy Severe 05/10/14 Yes shellfish derived Allergy Intermediate rash 04/22/21 Yes Physical Exam: PE: Constitutional: Well developed, well nourished, no acute distress, non-toxic appearance. Appears somewhat restless and uncomfortable. He is not acutely ill-appearing. HENT: Normocephalic, atraumatic Eyes: Sclera are clear and anicteric. Neck: Normal range of motion, no tenderness, supple, no stridor. Midline tenderness or step-offs. No deformity. No JVD. No meningismus Cardiovascular:Heart rate regular rhythm, 2 radial and +2 posterior tibial pulses bilaterally Lungs & Thorax: Lungs are clear to auscultation bilaterally without rales, rhonchi, wheezes. Equal chest rise. No evidence of chest or thorax trauma. Palpation of the left chest, left upper flank and left thorax reproduces pain. Palpable crepitus, subcutaneous emphysema or step-offs. No ecchymoses are noted. No tachypnea. No retractions. Speaks in full and clear sentences. Abdomen: Abdomen is obese, soft, nondistended, nontender to palpation. No palpable pulsatile mass. No CVA tenderness. No palpable masses or organomegaly. Skin: Warm, dry, no erythema, no rash. No jaundice. Back: No deformity. Full range of motion. No midline tenderness or step-offs. Diffuse thoracic soft tissue paraspinal tenderness. No CVA tenderness. No lumbar spine midline or paraspinal tenderness. No evidence of trauma to the back or thorax. No rash. Extremities: No tenderness, no cyanosis, no clubbing, ROM intact, no edema. No calf tenderness. Neurologic: Alert and oriented X 3, normal motor function, normal sensory function, no focal deficits noted. 5 out of 5 motor strength all 4 extremities. 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 Ambulatory with a steady gait. Psychologic: Anxious, cooperative. Current Patient Data: Vital Signs: Vital Signs Date Time Temp Pulse Resp B/P (MAP) Pulse Ox O2 Delivery O2 Flow Rate FiO2 01/12/22 03:30 97.8 103 20 146/97 (113) 98 Room Air 97.8 EKG: EKG: EKG is interpreted at 0354 Rhythm is sinus Rate is 88 bpm [place] is normal No STEMI Radiology/Procedures: Radiology/Procedures: IMAGING REPORT Signed PATIENT: MARQUEZ AVENDANO ACCOUNT: [id number] : 1965 LOCATION: ER AGE: 56 SEX: M EXAM STATUS: REG ER ORD. PHYSICIAN: CLIFFORD MEJIA DO REASON: chest pain PROCEDURE: PORTABLE CHEST 1V AP chest x-ray HISTORY: Chest pain. FINDINGS: Heart size normal. Mediastinal silhouette is normal. No pneumothorax, pulmonary opacities or pleural effusions. Bones are normal. IMPRESSION: No acute process. Electronically signed by: Chantell Hui MD (01/12/2022 4:07 AM) [facility] [place] and SIGNED BY: CHANTELL HUI MD DATE: 01/12/22 0405 Course & Med Decision Making: Course & Med Decision Making Pertinent Labs and Imaging studies reviewed. (See chart for details) Patient is given IV Toradol. He reports some improvement in pain, he is resting comfortably. Vital signs are stable. I discussed the findings, differential diagnosis and plan of care with him. He does have pyuria, no bacteria. He reports that he has not been sexually active in many years. He adamantly denies any urinary symptoms, anal discharge, scrotal pain or swelling. I explained that I will order a GC and Chlamydia urine, as well as regular urine culture. If there is any need to change treatment based on this, he should be notified. I told him to contact his PCP and his pain management physician for further evaluation and treatment. He may require further outpatient, nonemergent imaging studies, such as MRI. Home care instructions were provided. Return precautions given. There is no current indication for further invasive exams, imaging or admission at this time based on current clinical presentation. He verbalizes understanding of care, he is discharged in stable condition. Kwadwo Disclaimer: Kwadwo Disclaimer: This electronic medical record was generated, in whole or in part, using a voice recognition dictation system. Departure Departure Impression: Primary Impression: Left flank pain Additional Impression: Chronic back pain Qualified Codes: M54.6 - Pain in thoracic spine; G89.29 - Other chronic pain Disposition: HOME / SELF CARE / HOMELESS Condition: STABLE Referrals: GANESH DALEY MD (PCP) Patient Instructions: Back Pain, Adult, Flank Pain Additional Instructions: Use the medication as needed/as directed. Return to the ER for acute injury or trauma, if you develop shortness of breath, coughing up blood, temperature 100.4 or higher, if you develop a painful blistered rash on your chest or thorax, if you have any other concerns or problems. Your urine culture is pending, and if there is any abnormality or need for antibiotics, you should be contacted, in about [address] Morfin and your primary care doctor for follow-up Scripts Cyclobenzaprine Hcl (CYCLOBENZAPRINE HCL) 10 Mg Tablet 1 TAB PO BID for muscle relaxers, #20 TAB Prov: CLIFFORD MEJIA DO 01/12/22 CLIFFORD MEJIA DO Jan 12, 2022 04:03
[2022-01-12 04:06] LABS: BASO # 0.1 x10^3/uL (0.0-0.2); BASO % 1 % (0-3); EOS # 0.3 x10^3/uL (0.0-0.7); EOS % 3 % (0-3); HEMATOCRIT 44.4 % (39.0-53.0); HEMOGLOBIN 14.9 g/dL (13.0-17.5); LYMPH # 2.2 x10^3/uL (1.0-4.8); LYMPH % 25 % (24-48); MEAN CORPUSCULAR HEMOGLOBIN 30 pg (25-35); MEAN CORPUSCULAR HGB CONC 34 g/dL (31-37); MEAN CORPUSCULAR VOLUME 88 fL (79-100); MONO % 12 % (0-9); NEUT # 5.3 x10^3/uL (1.8-7.7); NEUT % 60 % (31-73); PLATELET COUNT 299 x10^3/uL (140-400); RED BLOOD COUNT 5.06 x10^6/uL (4.30-5.70); RED CELL DISTRIBUTION WIDTH 13.3 % (11.5-14.5); WHITE BLOOD COUNT 8.8 x10^3/uL (4.0-11.0)
--- NOTE | 2022-01-12 04:09 | RAD ---
AP chest x-ray HISTORY: Chest pain. FINDINGS: Heart size normal. Mediastinal silhouette is normal. No pneumothorax, pulmonary opacities o r pleural effusions. Bones are normal. IMPRESSION: No acute process. Electronically signed by: Tal Hui MD (01/12/2022 4:07 AM) [facility] [place]
[2022-01-12 04:11] VITALS: BP 121/78
[2022-01-12 04:16] LABS: BILIRUBIN,URINE SMALL (NEG); CLARITY,URINE CLEAR; COLOR,URINE YELLOW; NITRITE,URINE NEGATIVE (NEG); PH,URINE 5.5 (<5.0-8.0); PROTEIN,URINE 30 mg/dL (NEG-TRACE); UROBILINOGEN,URINE 0.2 mg/dL (0.2 mg/dL)
[2022-01-12 04:17] LABS: BACTERIA,URINE 0 /HPF (0-FEW); HYALINE CASTS, URINE OCCASIONAL /HPF; RBC,URINE 0 /HPF (0-2); WBC,URINE 20-40 /HPF (0-4)
[2022-01-12 04:21] LABS: CALCIUM 8.9 mg/dL (8.5-10.1); CREATININE 1.1 mg/dL (0.7-1.3); GFR 69.8; POTASSIUM 3.8 mmol/L (3.5-5.1)
[2022-01-12 04:27] LABS: ALBUMIN 3.6 g/dL (3.4-5.0); MAGNESIUM 1.8 mg/dL (1.8-2.4); TOTAL BILIRUBIN 0.5 mg/dL (0.2-1.0); TOTAL PROTEIN 7.3 g/dL (6.4-8.2)
[2022-01-12] MEDS ORDERED: CYCL10TA19 PO (04:55)
--- NOTE | 2022-01-12 07:53 | EKG ---
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
== END 2022-01-12 05:05 | disposition home or self-care (01) ==
LOC: ER 03:28
DX: R10.12 Left upper quadrant pain (principal); R07.89 Other chest pain; M54.6 Pain in thoracic spine; G89.29 Other chronic pain; I10 Essential (primary) hypertension; M54.12 Radiculopathy, cervical region; Z87.891 Personal history of nicotine dependence; Z91.041 Radiographic dye allergy status; Z91.013 Allergy to seafood
CPT/HCPCS: 36415; 71045; 80053; 81001; 83690; 83735; 83880; 84484; 85025; 85379; 87086; 87491; 87591; 93005; 96374; 99285; J1885

== ENCOUNTER 2022-02-22 15:51 | Emergency (ER) | payer MEDICAID ==
[~2022-02-22] VITALS: Ht 175.3 cm; Wt 109.7 kg
[2022-02-22 15:55] VITALS: BP 167/109
[2022-02-22] MEDS ORDERED: KETOROLAC 60 MG/2 ML VIAL. IM ONE (16:30)
--- NOTE | 2022-02-22 16:33 | PHYS DOC ---
Past Medical History Past Medical History: Anxiety, Hypertension Additional Past Medical Histor: DJD Past Surgical History: Cervical Fusion, Other Additional Past Surgical Histo: THORACIC NECK SX, BX CARPAL TUNNEL, ING HERNIA Smoking Status: Former Smoker Alcohol Use: Occasionally Drug Use: None General Adult EDM: Chief Complaint: NECK PAIN HPI: HPI: Patient is a 56-year-old male who presents today with neck pain. Patient states that over the weekend he was working on a tractor and he said starting late Sunday night early Sunday morning he started having increased neck pain. Patient states he has had multiple issues with his neck he has had a cervical fusion in the past with an anterior approach, he is also had bone spurs on his cervical spine area and has chronic radiculopathy pain from his neck issues. Patient states that last year he was seen by Dr. Soren Morfin and pain management was given 3 cervical epidural injections which she stated helped with his neck pain he said the last 1 was approximately 3 months ago, he states that they did help up until this weekend. Patient states that he does take Advil on a regular basis for his pain, he states that he has not seen Dr. Avalos for neck pain today. Patient states that he drove himself to the emergency department today. Review of Systems: Review of Systems: Constitutional: Denies fever or chills. [] Eyes: Denies change in visual acuity. [] HENT: Denies nasal congestion or sore throat. [] Respiratory: Denies cough or shortness of breath. [] Cardiovascular: Denies chest pain or edema. [] GI: Denies abdominal pain, nausea, vomiting, bloody stools or diarrhea. [] : Denies dysuria. [] Musculoskeletal: Neck pain Integument: Denies rash. [] Neurologic: Denies headache, focal weakness or sensory changes. [] Endocrine: Denies polyuria or polydipsia. [] Lymphatic: Denies swollen glands. [] Psychiatric: Denies depression or anxiety. [] Heart Score: C/O Chest Pain: No Risk Factors: Risk Factors: DM, Current or recent (<one month) smoker, HTN, HLP, family history of CAD, obesity. Risk Scores: Score 0 - 3: 2.5% MACE over next 6 weeks - Discharge Home Score 4 - 6: 20.3% MACE over next 6 weeks - Admit for Clinical Observation Score 7 - 10: 72.7% MACE over next 6 weeks - Early Invasive Strategies Current Medications: Current Medications Medications (Trade) Dose Ordered Sig/Anders Start Time Stop Time Status Last Admin Dose Admin Ketorolac Tromethamine (Toradol Im) 60 mg 1X ONCE 02/22/22 16:30 02/22/22 16:31 Allergies: Allergies: Allergies Coded Allergies Type Severity Reaction Last Updated Verified Iodinated Contrast Media Allergy Severe 05/10/14 Yes shellfish derived Allergy Intermediate rash 04/22/21 Yes Physical Exam: PE: Constitutional: Well developed, well nourished, no acute distress, non-toxic appearance. [] HENT: Normocephalic, atraumatic, bilateral external ears normal, oropharynx moist, no oral exudates, nose normal. [] Eyes: PERRLA, EOMI, conjunctiva normal, no discharge. [] Neck: Normal range of motion, anterior healed scar noted on the neck, patient does have tenderness pain throughout his cervical spine that radiates to the front of his neck and also up into his head. Cardiovascular:Heart rate regular rhythm, no murmur [] Lungs & Thorax: Bilateral breath sounds clear to auscultation [] Abdomen: Bowel sounds normal, soft, no tenderness, no masses, no pulsatile ma sses. [] Skin: Warm, dry, no erythema, no rash. [] Back: No tenderness, no CVA tenderness. [] Extremities: Upper extremities with normal range of motion, sensory is intact, neurovascular is intact distal to the pain in the neck. Neurologic: Alert and oriented X 3, normal motor function, normal sensory function, no focal deficits noted. [] Psychologic: Affect normal, judgement normal, mood normal. [] Current Patient Data: Vital Signs: Vital Signs Date Time Temp Pulse Resp B/P (MAP) Pulse Ox O2 Delivery O2 Flow Rate FiO2 02/22/22 15:55 98.4 115 18 167/109 (128) 95 Room Air 98.4 EKG: EKG: [] Radiology/Procedures: Radiology/Procedures: [REASON: neck pain with hx of fusion PROCEDURE: CT CERVICAL SPINE WO CONTRAST Exam: CT cervical spine without contrast INDICATION: Neck pain with history of fusion TECHNIQUE: Sequential axial images through the cervical spine obtained without IV contrast. Sagittal and coronal reformatted images were reconstructed from the axial data and reviewed. Exposure: One or more of the following in the visualized dose reduction techniques were utilized for this examination: 1. Automated exposure control 2. Adjustment of the MA and/or KV according to patient size 3. Use of iterative of reconstructive technique Comparisons: MRI cervical spine 08/20/2020 FINDINGS: Visualized intracranial structures are unremarkable. Anterior cervical fusion hardware from C3 through C5 with interbody screws and vertical stabilization plate. Vertebral body heights and alignment are well-maintained. Fracture to the cervical spine is not identified. No significant spondylotic change in cervical spine. Visualized paraspinal soft tissues are unremarkable. IMPRESSION: Negative CT C-spine for acute traumatic injury. Electronically signed by: Amanda Cadet MD (02/22/2022 5:09 PM) [facility]] Course & Med Decision Making: Course & Med Decision Making Pertinent Labs and Imaging studies reviewed. (See chart for details) 1720 I did review radiological results with patient and did inform him that the radiologist did not find any acute findings on his CT scan today but I did talk with patient about following up with Dr. Avalos for further evaluation and management of this such as an outpatient MRI and referral to Dr. Hogan or neurosurgeon for evaluation of his chronic neck pain. Patient is agreeable with the plan of care, I will give the patient some opioid pain medication along with Flexeril to help with the transition to Dr. Delgado's office. Kwadwo Disclaimer: Kwadwo Disclaimer: This electronic medical record was generated, in whole or in part, using a voice recognition dictation system. Departure Departure Impression: Primary Impression: Neck pain Disposition: HOME / SELF CARE / HOMELESS Condition: STABLE Referrals: GANESH AVALOS MD (PCP) ALMA TERAN MD Patient Instructions: Cervical Sprain Additional Instructions: Hydrocodone take 1 to 2 tablets every 6 hours as needed for severe pain, use with caution may cause drowsiness and constipation [id number] ibuprofen as labeled directed, take with food may cause stomach upset if taken on an empty stomach Flexeril take 1 tablet every 8 hours as needed for muscle spasms Follow-up with Dr. Delgado this week for further evaluation and management of your neck pain Return to the emergency department should you have numbness in your hands or you are unable to use your arms. Scripts Hydrocodone Bit/Acetaminophen (HYDROCODONE-APAP 5-325 ) 1 Tab Tablet 1 TAB PO PRN Q6HRS PRN for PAIN for 7 Days, #20 TAB 0 Refills Prov: NILO MUNIZ [employer] 02/22/22 Cyclobenzaprine Hcl (CYCLOBENZAPRINE HCL) 10 Mg Tablet 10 MG PO TID PRN PRN for MUSCLE SPASMS, #20 TAB Prov: NILO MUNIZ 02/22/22 NILO MUNIZ [employer] Feb 22, 2022 16:32
--- NOTE | 2022-02-22 17:11 | RAD ---
Exam: CT cervical spine without contrast INDICATION: Neck pain with history of fusion TECHNIQUE: Sequential axial images through the cervical spine obtained without IV contrast. Sagittal and coronal reformatted images were reconstructed from the axial data and reviewed. Exposure: One or more of the following in the visualized dose reduction techniques were utilized for this examination: 1. Automated exposure control 2. Adjustment of the MA and/or KV according to patient size 3. Use of iterative of reconstructive technique Comparisons: MRI cervical spine 08/20/2020 FINDINGS: Visualized intracranial structures are unremarkable. Anterior cervical fusion hardware from C3 through C5 with interbody screws and vertical stabilization plate. Vertebral body heights and alignment are well-maintained. Fracture to the cervical spine is not identified. No significant spondylotic change in cervical spine. Visualized paraspinal soft tissues are unremarkable. IMPRESSION: Negative CT C-spine for acute traumatic injury. Electronically signed by: Amanda Cadet MD (02/22/2022 5:09 PM) [facility]
[2022-02-22] MEDS ORDERED: CYCL10TA19 PO (17:34)
[2022-02-22] MEDS ORDERED: HYDR-2761 PO (17:34)
== END 2022-02-22 17:49 | disposition home or self-care (01) ==
LOC: ER 15:51
DX: M54.2 Cervicalgia (principal); I10 Essential (primary) hypertension; Z87.891 Personal history of nicotine dependence; M47.812 Spondylosis without myelopathy or radiculopathy, cervical region
CPT/HCPCS: 72125; 96372; 99284; J1885